=== PATIENT | female | born 1955 | race Caucasian/White ===

== ENCOUNTER 2017-01-27 15:00 | Observation (INO) | payer BC ==
--- NOTE | 2017-01-27 15:52 | PDOC ---
History of Present Illness - General Chief Complaint: Weakness Stated Complaint: WEAKNESS Past History - Past Medical History Allergies/Adverse Reactions: Allergies Allergy/AdvReac Type Severity Reaction Status Date / Time gatifloxacin [From Tequin] Allergy Severe Hives Verified 10/10/15 10:47 azithromycin Allergy Verified 10/10/15 10:47 codeine [Codeine] Allergy Verified 10/10/15 10:47 Home Medications: Ambulatory Orders Metformin HCl [Glucophage] 500 mg PO BID 06/21/15 Aspirin [ASA -] 81 mg PO DAILY 10/10/15 Oxycodone HCl/Acetaminophen [Percocet 5-325 mg Tablet -] 1 tab PO Q8H PRN #10 tablet MDD 3 10/10/15 Topiramate [Topamax] 50 mg PO DAILY 10/10/15 Anemia: No Asthma: No Cancer: No Cardiac Disorders: Yes (CAD, QUAD BYPASS, CARDIAC STENTS) CVA: No COPD: No CHF: No Dementia: No Diabetes: Yes GI Disorders: Yes (SBO) Disorders: No HTN: Yes Hypercholesterolemia: Yes Liver Disease: No Seizures: No Thyroid Disease: No - Surgical History Abdominal Surgery: (GASTRIC BYPASS) Cardiac Surgery: Yes (QUAD BYPASS) Cholecystectomy: Yes GI Surgery: Yes (GASTRIC BYPASS) - Immunization History Td Vaccination: Yes Immunization Up to Date: Yes - Suicide/Smoking/Psychosocial Hx Smoking Status: No Smoking History: Never smoked Have you smoked in the past 12 months: No Number of Cigarettes Smoked Daily: 0 Information on smoking cessation initiated: No Hx Alcohol Use: No Drug/Substance Use Hx: No Substance Use Type: None Hx Substance Use Treatment: No *Physical Exam - Vital Signs Last Vital Signs Temp Pulse Resp BP Pulse Ox 98.7 F 70 20 165/70 97 01/27/17 15:24 01/27/17 15:24 01/27/17 15:24 01/27/17 15:24 01/27/17 15:24 *DC/Admit/Observation/Transfer - Referrals Referrals: Presley Stevens MD [Primary Care Provider] - - Patient Instructions - Post Discharge Activity
--- NOTE | 2017-01-27 17:16 | PDOC ---
History of Present Illness <Jordyn Singh - Last Filed: 01/27/17 18:28> - History of Present Illness Initial Comments: 01/27/17 20:12 The patient is a 61 year old female, with a significant past medical history of hypertension, hyperlipidemia, diabetes(not fully compliant with Meds), CAD(s/p 10 stents), CABG, and SBO, who presents to the emergency department with weakness and dizziness since earlier this afternoon. 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 Patient reports sitting and putting her head down, and is unsure whether she lost consciousness or fell asleep. When she woke up, patient reports her dizziness persisted. Patient denies any head trauma, double/blurred vision, headache, lightheadedness, nausea, vomiting, or tinnitus. Patient reports similar symptoms prior to stent placement in the past. Patient states she typically does not develop any chest pain during these episodes, except during her first cardiac stent placement. Today, patient denies any chest pain, shortness of breath, diaphoresis, or palpitations. Patient reports added stress after losing her son to a motorcycle accident several weeks later, and states the principal at her school has not been understanding about her loss. Patient denies any suicidal or homicidal ideations. She denies any fever, chills, or cough. Patient reports one episode of urinary incontinence yesterday, but denies any dysuria, hematuria, or frequency. She denies any abdominal pain, diarrhea, constipation. She denies any recent travel or sick contacts. Allergies: Gatifloxacin, Codeine, Azithromycin Past Surgical History: CABG, Cardiac [id number], tonsillectomy cholecystectomy Social History: Social ETOH use. Non smoker. No recreational drug use. PCP: Dr. Stevens <Floyd Hughes - Last Filed: 01/27/17 20:21> - General Chief Complaint: Weakness Stated Complaint: WEAKNESS Time Seen by Provider: 01/27/17 16:13 Past History <Jordyn Singh - Last Filed: 01/27/17 18:28> - Past Medical History Anemia: No Asthma: No Cancer: No Cardiac Disorders: Yes (CAD, QUAD BYPASS, CARDIAC STENTS) CVA: No COPD: No CHF: No Dementia: No Diabetes: Yes GI Disorders: Yes (SBO) Disorders: No HTN: Yes Hypercholesterolemia: Yes Liver Disease: No Seizures: No Thyroid Disease: No - Surgical History Abdominal Surgery: (GASTRIC BYPASS) Cardiac Surgery: Yes (QUAD BYPASS) Cholecystectomy: Yes GI Surgery: Yes (GASTRIC BYPASS) - Immunization History Td Vaccination: Yes Immunization Up to Date: Yes - Suicide/Smoking/Psychosocial Hx Smoking Status: No Smoking History: Never smoked Have you smoked in the past 12 months: No Number of Cigarettes Smoked Daily: 0 Information on smoking cessation initiated: No Hx Alcohol Use: No Drug/Substance Use Hx: No Substance Use Type: None Hx Substance Use Treatment: No <Nassef,Yomna - Last Filed: 01/27/17 20:21> - Past Medical History Allergies/Adverse Reactions: Allergies Allergy/AdvReac Type Severity Reaction Status Date / Time gatifloxacin [From Tequin] Allergy Severe Hives Verified 10/10/15 10:47 azithromycin Allergy Verified 10/10/15 10:47 codeine [Codeine] Allergy Verified 10/10/15 10:47 Home Medications: Ambulatory Orders Metformin HCl [Glucophage] 500 mg PO BID 06/21/15 Prasugrel HCl [Effient] 0 mg PO DAILY 01/27/17 Review of Systems - Review of Systems Comments:: 01/27/17 20:14 GENERAL/CONSTITUTIONAL: Yes weakness, tremors. No fever or chills.. HEAD, EYES, EARS, NOSE AND THROAT: Yes black spots in vision, photophobia. No double vision or blurred vision. No ear pain or discharge. No sore throat. GASTROINTESTINAL: No nausea, vomiting, diarrhea or constipation. GENITOURINARY: Yes urinary incontinence. No hematuria, dysuria, frequency. CARDIOVASCULAR: No chest pain or shortness of breath. RESPIRATORY: No cough, wheezing, or hemoptysis. MUSCULOSKELETAL: No joint or muscle swelling or pain. No neck or back pain. SKIN: No rash NEUROLOGIC: Yes vertigo, dizziness, weakness. No headache, loss of consciousness. ENDOCRINE: No increased thirst. No abnormal weight change. HEMATOLOGIC/LYMPHATIC: No anemia, easy bleeding, or history of blood clots. ALLERGIC/IMMUNOLOGIC: No hives or skin allergy. <Nassef,Yomna - Last Filed: 01/27/17 20:21> *Physical Exam - Vital Signs Last Vital Signs Temp Pulse Resp BP Pulse Ox 98.7 F 70 20 165/70 97 01/27/17 15:24 01/27/17 15:24 01/27/17 15:24 01/27/17 15:24 01/27/17 15:24 <Jordyn Singh - Last Filed: 01/27/17 18:28> - Vital Signs Last Vital Signs Temp Pulse Resp BP Pulse Ox 98.7 F 70 20 165/70 97 01/27/17 15:24 01/27/17 15:24 01/27/17 15:24 01/27/17 15:24 01/27/17 15:24 - Physical Exam Comments: 01/27/17 20:15 GENERAL: Awake, alert, and fully oriented, in no acute distress HEAD: No signs of trauma EYES: PERRLA, EOMI, sclera anicteric, conjunctiva clear ENT: Auricles normal inspection, hearing grossly normal, nares patent, oropharynx clear without exudates. Moist mucosa NECK: Normal ROM, supple, no lymphadenopathy, JVD, or masses LUNGS: Breath sounds equal, clear to auscultation bilaterally. No wheezes, and no crackles HEART: Regular rate and rhythm, normal S1 and S2, no murmurs, rubs or gallops ABDOMEN: Soft, nontender, normoactive bowel sounds. No guarding, no rebound. No masses EXTREMITIES: Normal range of motion, no edema. No clubbing or cyanosis. No cords, erythema, or tenderness BACK: No midline spinal tenderness in cervical/thoracic/lumbar region NEUROLOGICAL: Normal speech, cranial nerves intact, negative pronator drift, 5/ 5 strength in all 4 extremities, normal sensation to light touch in all 4 extremities, normal cerebellar exam, normal gait, normal reflexes and tone SKIN: Warm, Dry, normal turgor, no rashes or lesions noted. <Ruperto Hughesmarco antonio - Last Filed: 01/27/17 20:21> Heart Score/ECG Review - History History: Slightly suspicious - Electrocardiogram EKG: Non specific repolarization disturbance - Age Age: 45-65 - Risk Factors Based on the list above the patient has:: >/=3 risk factors or Hx atherosclerotic disease - Troponin Troponin: </= normal limit - Score Heart Score - Total: 4 #1 01/27/17 20:18 Twelve-lead EKG was performed and reviewed by me. Normal sinus rhythm, rate 66, normal axis and intervals. No ST elevations. T wave flattening in leads 3 and V3. When compared to previous EKG T wave flattening in V3 is new and patient has pseudonormalization of T waves in lead 3. <Floyd Hughes - Last Filed: 01/27/17 20:21> ED Treatment Course - LABORATORY CBC & Chemistry Diagram: 01/27/17 17:00 12 17:00 - ADDITIONAL ORDERS Additional order review: 01/27/17 17:00 RBC 4.14 MCV 87.6 MCHC 33.4 RDW 14.3 MPV 8.6 Neutrophils % 57.8 Lymphocytes % 32.6 Monocytes % 7.3 Eosinophils % 1.7 Basophils % 0.6 - RADIOLOGY Radiograph Interpretation: 01/27/17 18:28 EXAM: Head CT INTERPRETED BY: Dr. Elizalde REVIEWED BY: Dr. Hughes IMPRESSION: No CT evidence of intracranial injury. A 1.3 cm at least partially calcified left frontal extra-axial lesion is noted suggestive of a meningioma. There is apparent mild perilesional edema. Contrast-enhanced MRI evaluation is suggested , nonemergent unless otherwise clinically indicated. Prominent atherosclerotic vascular calcifications are seen. Correlate with clinical risk factors. <Jordyn Singh - Last Filed: 01/27/17 18:28> - LABORATORY CBC & Chemistry Diagram: 01/27/17 17:00 12 17:00 - RADIOLOGY Radiology Studies Ordered: Category Date Time Status HEAD CT WITHOUT CONTRAST [CT] Stat CT Scan 01/27/17 16:56 Ordered CHEST X-RAY PORTABLE* [RAD] Stat Radiology 01/27/17 16:56 Ordered <Floyd Hughes - Last Filed: 01/27/17 20:21> Medical Decision Making - Medical Decision Making 01/27/17 18:16 61-year-old female with a history of CABG and CAD status post "10 stents." Vitals are unremarkable. Exam is unremarkable. Patient is high risk for ACS given history, patient also states she had similar symptoms prior to her previous stent placements. Will check cardiac enzymes and a chest x-ray and admit at minimum for observation. 01/27/17 20:19 Labs unremarkable including negative troponin. Chest x-ray on my read is negative for acute pathology. Patient given aspirin and admitted to Dr. Lizarraga for further management. Case discussed in detail with admitting physician including history, physical exam and ancillary studies. Admitting physician has assumed care for the patient, will follow all pending diagnostics and will complete the evaluation and treatment. <Floyd Hughes - Last Filed: 01/27/17 20:21> *DC/Admit/Observation/Transfer - Attestations Scribe Attestion: 01/27/17 18:28 Documentation prepared by Jordyn Singh, acting as medical communication specialist for Floyd Hughes MD. <Jordyn Singh - Last Filed: 01/27/17 18:28> - Discharge Dispostion Admit: Yes - Attestations Physician Attestion: 01/27/17 19:40 I, Dr. Floyd Hughes MD, attest that this document has been prepared under my direction and personally reviewed by me in its entirety. I further attest, that it accurately reflects all work, treatment, procedures and medical decision -making performed by me. <Floyd Hughes - Last Filed: 01/27/17 20:21> Diagnosis at time of Disposition: Weakness - Discharge Dispostion Condition at time of disposition: Stable - Referrals Referrals: Presley Stevens MD [Primary Care Provider] - - Patient Instructions - Post Discharge Activity
[2017-01-27 18:19] LABS: BASOPHIL 0.6 % (0-2.0); EOSINOPHIL 1.7 % (0-4.5); MCH 29.2 pg (25.7-33.7); MCHC 33.4 g/dl (32.0-36.0); MEAN CELL VOLUME 87.6 fl (80-96); MEAN PLT VOLUME 8.6 fl (7.5-11.1); NEUTROPHILS 57.8 % (42.8-82.8); PLATELET COUNT 259 K/MM3 (134-434); RDW 14.3 % (11.6-15.6); WHITE BLOOD COUNT 5.5 K/mm3 (4.0-10.0)
[2017-01-27 18:36] LABS: URINE APPEARANCE CLEAR; URINE BILIRUBIN NEGATIVE (NEGATIVE); URINE BLOOD NEGATIVE (NEGATIVE); URINE COLOR STRAW; URINE GLUCOSE (UA) NEGATIVE (NEGATIVE); URINE KETONE NEGATIVE (NEGATIVE); URINE LEUK ESTERASE TRACE (NEGATIVE); URINE NITRITE NEGATIVE (NEGATIVE); URINE PROTEIN NEGATIVE (NEGATIVE); URINE UROBILINOGEN NEGATIVE mg/dL (0.2-1.0)
[2017-01-27 18:41] LABS: ALBUMIN 3.8 g/dl (3.4-5.0); ANION GAP 6 (8-16); BILIRUBIN,TOTAL 0.4 mg/dL (0.2-1.0); CALCIUM 8.9 mg/dL (8.5-10.1); CO2 29 mmol/L (21-32); CREATININE 0.7 mg/dL (0.55-1.02); GLUCOSE,RANDOM 104 mg/dL (74-106); MAGNESIUM 2.3 mg/dL (1.8-2.4); SGOT/AST 12 U/L (15-37); SGPT/ALT 19 U/L (12-78); TOT PROT 7.1 g/dl (6.4-8.2)
[2017-01-27 18:49] LABS: ALK PHOS 95 U/L (45-117); THYROID STIMULATING HORMONE 1.27 uIU/ml (0.358-3.74); TROPONIN I 0.04 ng/ml (0.00-0.05)
[2017-01-27 18:59] LABS: URINE MUCUS RARE; URINE RBC <1 /hpf (0-3); URINE WBC 4 /hpf (3-5)
[2017-01-27] MEDS ORDERED: ASPIRIN 325 MG TABLET PO ONE (19:40)
--- NOTE | 2017-01-27 19:43 | HP ---
CHIEF COMPLAINT: Weakness, Dizziness and Chest Pressure PCP: Dr. Presley Stveens Corporate Specialist: Dr. Eric Merritt HISTORY OF PRESENT ILLNESS: This is a 61 y/o woman with a past medical history of CAD stents x10. Who presents to the ED with dizziness, generalized weakness, fatigue and L- chest pressure x today. Patient reports having dizziness and fatigue for weeks, worse today. 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 Patient reports placing her head on a desk, ?LOC. Patient reports having left chest wall pressure non-radiating earlier today- now resolved. Patient reports to having feelings of anxiety secondary to the stress- work related and the recent of her son, last November due to a motorcycle accident. Patient denies fever, chills, cough, AP, N/V/D, constipation, dysuria ER course was notable for: (1) CT Head- 1.3cm partially calcified left frontal extra lesion suggestive meningioma, mild perilesional edema (2) Troponin I- 0.04 (3) Chest Xray- no acute pathology Recent Travel: None PAST MEDICAL HISTORY: CAD (stents x10) HTN HLD DM SBO (06/2015) RLS PAST SURGICAL HISTORY: Quad Bypass ([facility], 2011) Gastric Bypass (2008) Cholecystectomy Tonsillectomy Tubal Ligation Social History: Smoking: Never Alcohol: None Drugs: None Lives with spouse, daughter in law, employed [employer] Family History: Mother- Heart Disease, living Father- unknown Allergies gatifloxacin [From Tequin] Allergy (Severe, Verified 10/10/15 10:47) Hives azithromycin Allergy (Verified 10/10/15 10:47) codeine [Codeine] Allergy (Verified 10/10/15 10:47) HOME MEDICATIONS: Home Medications Medication Instructions Recorded Metformin HCl [Glucophage] 500 mg PO BID 06/21/15 Prasugrel HCl [Effient] 0 mg PO DAILY 01/27/17 REVIEW OF SYSTEMS CONSTITUTIONAL: generalized weakness, malaise Absent: fever, chills, diaphoresis, loss of appetite, weight change HEENT: Absent: rhinorrhea, nasal congestion, throat pain, throat swelling, difficulty swallowing, mouth swelling, ear pain, eye pain, visual changes CARDIOVASCULAR: chest pain, presyncope, lightheadedness Absent: palpitations, irregular heart rate, peripheral edema RESPIRATORY: Absent: cough, shortness of breath, dyspnea with exertion, orthopnea, wheezing, stridor, hemoptysis GASTROINTESTINAL: Absent: abdominal pain, abdominal distension, nausea, vomiting, diarrhea, constipation, melena, hematochezia GENITOURINARY: Absent: dysuria, frequency, urgency, hesitancy, hematuria, flank pain, genital pain MUSCULOSKELETAL: Absent: myalgia, arthralgia, joint swelling, back pain, neck pain SKIN: Absent: rash, itching, pallor HEMATOLOGIC/IMMUNOLOGIC: Absent: easy bleeding, easy bruising, lymphadenopathy, frequent infections ENDOCRINE: Absent: unexplained weight gain, unexplained weight loss, heat intolerance, cold intolerance NEUROLOGIC: Absent: headache, focal weakness or paresthesias, dizziness, unsteady gait, seizure, mental status changes, bladder or bowel incontinence PSYCHIATRIC: Absent: anxiety, depression, suicidal or homicidal ideation, hallucinations. PHYSICAL EXAMINATION Vital Signs - 24 hr 01/27/17 15:24 Temperature 98.7 F Pulse Rate 70 Respiratory 20 Rate Blood Pressure 165/70 O2 Sat by Pulse 97 Oximetry (%) GENERAL: Tearful, awake, alert, and fully oriented, in no acute distress. HEAD: Normal with no signs of trauma. EYES: Pupils equal, round and reactive to light, extraocular movements intact, sclera anicteric, conjunctiva clear. No lid lag. EARS, NOSE, THROAT: Ears normal, nares patent, oropharynx clear without exudates. Moist mucous membranes. NECK: Normal range of motion, supple without lymphadenopathy, JVD, or masses. LUNGS: Breath sounds equal, clear to auscultation bilaterally. No wheezes, and no crackles. No accessory muscle use. HEART: Regular rate and rhythm, normal S1 and S2 without murmur, rub or gallop. ABDOMEN: Soft, nontender, not distended, normoactive bowel sounds, no guarding, no rebound, no masses. No hepatomegaly or splenomegaly. MUSCULOSKELETAL: Normal range of motion at all joints. No bony deformities or tenderness. No CVA tenderness. UPPER EXTREMITIES: 2+ pulses, warm, well-perfused. No cyanosis. No clubbing. No peripheral edema. LOWER EXTREMITIES: 2+ pulses, warm, well-perfused. No calf tenderness. No peripheral edema. NEUROLOGICAL: Cranial nerves II-XII intact. Normal speech. Heel-Pimentel test-wnl no ataxia. Gait not observed PSYCHIATRIC: Cooperative. Good eye contact. Appropriate mood and affect. SKIN: Warm, dry, normal turgor, no rashes or lesions noted, normal capillary refill. Laboratory Results - last 24 hr 01/27/17 01/27/17 01/27/17 17:00 17:00 17:00 WBC 5.5 RBC 4.14 Hgb 12.1 Hct 36.3 MCV 87.6 MCH 29.2 MCHC 33.4 RDW 14.3 Plt Count 259 MPV 8.6 Neutrophils % 57.8 Lymphocytes % 32.6 Monocytes % 7.3 Eosinophils % 1.7 Basophils % 0.6 Sodium 140 Potassium 3.7 Chloride 105 Carbon Dioxide 29 Anion Gap 6 L BUN 11 Creatinine 0.7 Creat Clearance w eGFR > 60 Random Glucose 104 Calcium 8.9 Magnesium 2.3 D Total Bilirubin 0.4 AST 12 L ALT 19 Alkaline Phosphatase 95 Troponin I 0.04 B-Natriuretic Peptide 159.49 H Total Protein 7.1 Albumin 3.8 TSH 1.27 D Urine Color Urine Appearance Urine pH Ur Specific [place] Urine Protein Urine Glucose (UA) Urine Ketones Urine Blood Urine Nitrite Urine Bilirubin Urine Urobilinogen Urine WBC (Auto) Urine RBC (Auto) Ur Epithelial Cells Urine Mucus Acetone, Qual 01/27/17 01/27/17 17:00 17:55 WBC RBC Hgb Hct MCV MCH MCHC RDW Plt Count MPV Neutrophils % Lymphocytes % Monocytes % Eosinophils % Basophils % Sodium Potassium Chloride Carbon Dioxide Anion Gap BUN Creatinine Creat Clearance w eGFR Random Glucose Calcium Magnesium Total Bilirubin AST ALT Alkaline Phosphatase Troponin I B-Natriuretic Peptide Total Protein Albumin TSH Urine Color Straw Urine Appearance Clear Urine pH 6.0 Ur Specific [place] 1.005 Urine Protein Negative Urine Glucose (UA) Negative Urine Ketones Negative Urine Blood Negative Urine Nitrite Negative Urine Bilirubin Negative Urine Urobilinogen Negative Urine WBC (Auto) 4 Urine RBC (Auto) <1 Ur Epithelial Cells Rare Urine Mucus Rare Acetone, Qual Negative L RADIOLOGY Radiograph Interpretation: 01/27/17 18:28 EXAM: Head CT INTERPRETED BY: Dr. Elizalde REVIEWED BY: Dr. Hughes IMPRESSION: No CT evidence of intracranial injury. A 1.3 cm at least partially calcified left frontal extra-axial lesion is noted suggestive of a meningioma. There is apparent mild perilesional edema. Contrast-enhanced MRI evaluation is suggested , nonemergent unless otherwise clinically indicated. Prominent atherosclerotic vascular calcifications are seen. Correlate with clinical risk factors. ASSESSMENT/PLAN: This is a 61 y/o woman with a PMHx of: CAD (stents x10), HTN, HLD, DM, SBO, RLS. Placed in Tele Observation for L-sided Weakness, Chest Pressure r/o ACS. Plan: 1. Neuro: L-Sided Weakness - Likely due to fatigue vs stress vs anxiety vs TIA - NIHSS 0 - CT Head- see above - On exam no focal deficit appreciated - Consider PT - f/u with neuro outpatient - Fall Precautions - Monitor vitals - Repeat CBC, BMP in am 2. Cardiology: Chest Pressure - HEART SCORE 4 - Continue cardiac monitoring - Serial Enzymes neg x1 - ASA given in ED, will continue - Appreciate Cardiology Consult - Echo 09/03/14: LVEF 70%, paradoxical septal motion due to prior CABG, trivial MR/TR/LA, PASP 31 mmHg - Treadmill nuclear stress test 06/26/13: Small area of lateral ischemia at 85% max predicted HR, normal wall motion with LVEF 80% - Echo 3. CAD - Stents x10 - Continue Effient, Asa 4. HTN - Controlled - Monitor BP - Consider BB - Monitor renal function 5. HLD - Will start Lipitor 6. Diabetes Mellitus - BGMs - ISS - HgbA1C in am - Will hold home med concern for hypoglycemic event 7. FEN - Replete lytes - Low Na, Diabetic Diet 8. DVT Prophylaxis - SCDs - Consider ACs if LOS > 48 hrs Code Status: Full Code Dispo: Tele Observation Problem List - Problem (1) Weakness Code(s): R53.1 - WEAKNESS (2) Left chest pressure Code(s): R07.89 - OTHER CHEST PAIN (3) HTN (hypertension) Code(s): I10 - ESSENTIAL (PRIMARY) HYPERTENSION (4) Anxiety Code(s): F41.9 - ANXIETY DISORDER, UNSPECIFIED (5) CAD (coronary artery disease) of artery bypass graft Code(s): I25.810 - ATHEROSCLEROSIS OF CABG W/O ANGINA PECTORIS (6) HLD (hyperlipidemia) Code(s): E78.5 - HYPERLIPIDEMIA, UNSPECIFIED (7) Diabetes mellitus Code(s): E11.9 - TYPE 2 DIABETES MELLITUS WITHOUT COMPLICATIONS Visit type - Emergency Visit Emergency Visit: Yes ED Registration Date: 01/27/17 Care time: The patient presented to the Emergency Department on the above date and was hospitalized for further evaluation of their emergent condition. - New Patient This patient is new to me today: Yes Date on this admission: 01/27/17 - Critical Care Critical Care patient: No
[2017-01-27] MEDS ORDERED: ASPIRIN 325 MG TABLET ONE (20:57)
[2017-01-27 22:52] LABS: URINE LEUK ESTERASE 1+ (NEGATIVE)
[2017-01-28 02:39] VITALS: BMI 29.9
[2017-01-28] MEDS: INSULIN SLIDING SCALE (NOVOLOG) 1 VIAL SQ SCH ×2 (06:57→12:22)
[2017-01-28] MEDS ORDERED: metFORMIN HCL 500 MG TABLET (FP) PO SCH (07:00)
[2017-01-28 07:36] LABS: BASOPHIL 0.8 % (0-2.0); EOSINOPHIL 4.4 % (0-4.5); MCH 28.8 pg (25.7-33.7); MCHC 33.4 g/dl (32.0-36.0); MEAN CELL VOLUME 86.3 fl (80-96); MEAN PLT VOLUME 8.2 fl (7.5-11.1); PLATELET COUNT 230 K/MM3 (134-434); RDW 14.5 % (11.6-15.6); WHITE BLOOD COUNT 3.9 K/mm3 (4.0-10.0)
[2017-01-28 08:15] LABS: ANION GAP 8 (8-16); CALCIUM 8.9 mg/dL (8.5-10.1); CO2 28 mmol/L (21-32); CREATININE 0.6 mg/dL (0.55-1.02); GLUCOSE,RANDOM 109 mg/dL (74-106); MAGNESIUM 2.2 mg/dL (1.8-2.4); PHOSPHOROUS 4.4 mg/dL (2.5-4.9)
[2017-01-28] MEDS ORDERED: ASPIRIN 81 MG CHEWABLE TABLETS PO SCH (10:00)
[2017-01-28] MEDS ORDERED: PRASUGREL HCL 10 MG TAB PO SCH (10:00)
[2017-01-28] MEDS ORDERED: TOPIRAMATE 25 MG TABLET (FP) PO SCH (10:00)
[2017-01-28] MEDS ORDERED: PATIENT'S OWN MEDICATION (NON-FORMULARY) (Topiramate [Topamax] 50 MG) PO SCH (10:00)
--- NOTE | 2017-01-28 10:09 | CON.CARD ---
Consult Consult Specialty:: Cardiology Referred by:: Ramandeep Narvaez NP Reason for Consultation:: Chest pain - History of Present Illness Chief Complaint: Chest discomfort, syncope? History of Present Illness: 61 yo female with CAD, CABG x4 (01/23/12, JEREZ to LAD, SVG to rPDA, SVG to OM1, SVG to ramus), HTN, hyperlipidemia, and DM type 2. 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 She was feeling tired and laid her head down on her desk and subsequently awoke at her desk. She is unclear as to if she fell asleep or had syncope. Currently without symptoms. CXR negative for acute pathology. No ischemic ECG changes. Trops (-) x3. Head CT demonstrated 1.3 cm partially calcified left frontal extra lesion suggestive meningioma and mild perilesional edema. Patient's current refining supervisor is Dr. Larson and last saw him ~ 6 months ago. - History Source History Provided By: Patient Limitations to Obtaining History: No Limitations - Past Medical History Cardio/Vascular: Yes: CAD, HTN, Hyperlipdemia Gastrointestinal: Yes: Diverticulitis, Other (SBO) ...: No Endocrine: Yes: Diabetes Mellitus Additional Medical History: Restless leg syndrome - Past Surgical History Past Surgical History: Yes: Bariatric Surgery (gastric bypass 2008), CABG ( (JEREZ to LAD, SVG to rPDA, SVG to OM1, SVG to ramus)), Cholecystectomy, Stent , Tonsillectomy, Tubal Ligation - Alcohol/Substance Use Hx Alcohol Use: No - Smoking History Smoking history: Never smoked Have you smoked in the past 12 months: No Aproximately how many cigarettes per day: 0 Home Medications - Allergies Allergies/Adverse Reactions: Allergies Allergy/AdvReac Type Severity Reaction Status Date / Time gatifloxacin [From Tequin] Allergy Severe Hives Verified 10/10/15 10:47 azithromycin Allergy Verified 10/10/15 10:47 codeine [Codeine] Allergy Verified 10/10/15 10:47 - Home Medications Home Medications: Ambulatory Orders Metformin HCl [Glucophage] 500 mg PO BID 06/21/15 Prasugrel HCl [Effient] 10 mg PO DAILY 01/27/17 Aspirin [ASA -] 81 mg PO DAILY 01/28/17 Topiramate [Topamax] 50 mg PO DAILY 01/28/17 Family Disease History - Family Disease History Family Disease History: Heart Disease: Mother Vital Signs: Vital Signs Temperature 97.7 F 01/28/17 06:00 Pulse Rate 64 01/28/17 06:00 Respiratory Rate 16 01/28/17 06:00 Blood Pressure 133/75 01/28/17 06:00 O2 Sat by Pulse Oximetry (%) 99 01/28/17 03:44 Constitutional: Yes: Well Nourished, No Distress Eyes: Yes: Conjunctiva Clear, EOM Intact HENT: Yes: Atraumatic, Normocephalic Respiratory: Yes: CTA Bilaterally Gastrointestinal: Yes: Normal Bowel Sounds, Soft Cardiovascular: Yes: Regular Rate and Rhythm JVD: No Carotid Bruit: No PMI: Non-Displaced Heart Sounds: Yes: S1, S2 Murmur: No: Systolic Murmur Edema: No Peripheral Pulses WNL: Yes Neurological: Yes: Alert, Oriented, Cran Nerves II-XII Intact Psychiatric: Yes: WNL - Other Data Labs, Other Data: CBC, BMP 01/28/17 06:00 01/28/17 06:00 Troponin, BNP 01/27/17 01/27/17 01/28/17 17:00 17:00 00:10 Troponin I 0.04 0.04 B-Natriuretic Peptide 159.49 H 01/28/17 06:00 Troponin I 0.04 B-Natriuretic Peptide Troponin, BNP 01/27/17 01/27/17 01/28/17 17:00 17:00 00:10 Troponin I 0.04 0.04 B-Natriuretic Peptide 159.49 H 01/28/17 06:00 Troponin I 0.04 B-Natriuretic Peptide 01/27/17 ECG: Sinus rhythm, rate 66 bpm, delayed R wave progression Echo: Report Reviewed (09/03/14 Echocardiogram: LVEF 70%, paradoxical septal motion due to prior CABG, trivial MR/TR/WY, PASP 31 mmHg) Imaging - Results Chest X-ray: Report Reviewed (01/27/17: No acute pathology.), Image Reviewed Other: Report Reviewed (06/26/13 Treadmill nuclear stress test: Small area of lateral ischemia at 85% max predicted HR, normal wall motion with LVEF 80%) Assessment/Plan 61 yo female with CAD, CABG x4 (01/23/12, JEREZ to LAD, SVG to rPDA, SVG to OM1, SVG to ramus), HTN, hyperlipidemia, and DM type 2. Patient was admitted yesterday with episode of dizziness, fatigue, chest discomfort, and questionable syncope (versus falling asleep). No ischemic ECG changes. CXR negative for acute pathology Trops (-) x3. Head CT demonstrated 1.3 cm partially calcified left frontal extra lesion suggestive meningioma and mild perilesional edema. No arrhythmias were noted on telemetry overnight. RECS: Patient may be discharged from cardiac standpoint with outpatient follow-up with her outside refining supervisor (Dr. Larson) in 1-2 weeks. No further inpatient cardiac work-up or intervention is clinically indicated at this time. Discharge planning as per hospitalist service. Neurology follow-up as per neuro service. Will see prn. Please call with questions.
[2017-01-28 10:14] VITALS: TEMP 97.6
[2017-01-28 12:20] VITALS: BP 159/90; PULSE 60
--- NOTE | 2017-01-28 12:44 | DS ---
Physical Exam: SUBJECTIVE: Patient seen and examined OBJECTIVE: Vital Signs Period Temp Pulse Resp BP Sys/Sams Pulse Ox Last 24 Hr 97.3 F-98.7 F 60-71 16-20 110-165/54-90 97-99 PHYSICAL EXAM GENERAL: The patient is awake, alert, and fully oriented, in no acute distress. HEAD: Normal with no signs of trauma. EYES: PERRL, extraocular movements intact, sclera anicteric, conjunctiva clear. ENT: Ears normal, nares patent, oropharynx clear without exudates, moist mucous membranes. NECK: Trachea midline, full range of motion, supple. LUNGS: Breath sounds equal, clear to auscultation bilaterally, no wheezes, no crackles, no accessory muscle use. HEART: Regular rate and rhythm, S1, S2 without murmur, rub or gallop. ABDOMEN: Soft, nontender, nondistended, normoactive bowel sounds, no guarding, no rebound, no hepatosplenomegaly, no masses. EXTREMITIES: 2+ pulses, warm, well-perfused, no edema. NEUROLOGICAL: Cranial nerves II through XII grossly intact. Normal speech, gait not observed. PSYCH: Normal mood, normal affect. SKIN: Warm, dry, normal turgor, no rashes or lesions noted. LABS Laboratory Results - last 24 hr 01/27/17 01/27/17 01/27/17 17:00 17:00 17:00 WBC 5.5 RBC 4.14 Hgb 12.1 Hct 36.3 MCV 87.6 MCH 29.2 MCHC 33.4 RDW 14.3 Plt Count 259 MPV 8.6 Neutrophils % 57.8 Lymphocytes % 32.6 Monocytes % 7.3 Eosinophils % 1.7 Basophils % 0.6 Sodium 140 Potassium 3.7 Chloride 105 Carbon Dioxide 29 Anion Gap 6 L BUN 11 Creatinine 0.7 Creat Clearance w eGFR > 60 POC Glucometer Random Glucose 104 Hemoglobin A1c % Calcium 8.9 Phosphorus Magnesium 2.3 D Total Bilirubin 0.4 AST 12 L ALT 19 Alkaline Phosphatase 95 Troponin I 0.04 B-Natriuretic Peptide 159.49 H Total Protein 7.1 Albumin 3.8 TSH 1.27 D Urine Color Urine Appearance Urine pH Ur Specific [place] Urine Protein Urine Glucose (UA) Urine Ketones Urine Blood Urine Nitrite Urine Bilirubin Urine Urobilinogen Ur Leukocyte Esterase Urine WBC (Auto) Urine RBC (Auto) Ur Epithelial Cells Urine Mucus Acetone, Qual 01/27/17 01/27/17 01/28/17 17:00 17:55 00:10 WBC RBC Hgb Hct MCV MCH MCHC RDW Plt Count MPV Neutrophils % Lymphocytes % Monocytes % Eosinophils % Basophils % Sodium Potassium Chloride Carbon Dioxide Anion Gap BUN Creatinine Creat Clearance w eGFR POC Glucometer Random Glucose Hemoglobin A1c % Calcium Phosphorus Magnesium Total Bilirubin AST ALT Alkaline Phosphatase Troponin I 0.04 B-Natriuretic Peptide Total Protein Albumin TSH Urine Color Straw Urine Appearance Clear Urine pH 6.0 Ur Specific [place] 1.005 Urine Protein Negative Urine Glucose (UA) Negative Urine Ketones Negative Urine Blood Negative Urine Nitrite Negative Urine Bilirubin Negative Urine Urobilinogen Negative Ur Leukocyte Esterase 1+ H Urine WBC (Auto) 4 Urine RBC (Auto) <1 Ur Epithelial Cells Rare Urine Mucus Rare Acetone, Qual Negative L 01/28/17 01/28/17 01/28/17 06:00 06:00 06:00 WBC 3.9 L RBC 3.96 Hgb 11.4 Hct 34.2 MCV 86.3 MCH 28.8 MCHC 33.4 RDW 14.5 Plt Count 230 MPV 8.2 Neutrophils % 47.0 Lymphocytes % 37.2 Monocytes % 10.6 H Eosinophils % 4.4 D Basophils % 0.8 Sodium 143 Potassium 3.9 Chloride 107 Carbon Dioxide 28 Anion Gap 8 BUN 12 Creatinine 0.6 Creat Clearance w eGFR POC Glucometer Random Glucose 109 H Hemoglobin A1c % Calcium 8.9 Phosphorus 4.4 Magnesium 2.2 Total Bilirubin AST ALT Alkaline Phosphatase Troponin I 0.04 B-Natriuretic Peptide Total Protein Albumin TSH Urine Color Urine Appearance Urine pH Ur Specific [place] Urine Protein Urine Glucose (UA) Urine Ketones Urine Blood Urine Nitrite Urine Bilirubin Urine Urobilinogen Ur Leukocyte Esterase Urine WBC (Auto) Urine RBC (Auto) Ur Epithelial Cells Urine Mucus Acetone, Qual 01/28/17 01/28/17 06:00 06:42 WBC RBC Hgb Hct MCV MCH MCHC RDW Plt Count MPV Neutrophils % Lymphocytes % Monocytes % Eosinophils % Basophils % Sodium Potassium Chloride Carbon Dioxide Anion Gap BUN Creatinine Creat Clearance w eGFR POC Glucometer 103 Random Glucose Hemoglobin A1c % 7.1 H D Calcium Phosphorus Magnesium Total Bilirubin AST ALT Alkaline Phosphatase Troponin I B-Natriuretic Peptide Total Protein Albumin TSH Urine Color Urine Appearance Urine pH Ur Specific [place] Urine Protein Urine Glucose (UA) Urine Ketones Urine Blood Urine Nitrite Urine Bilirubin Urine Urobilinogen Ur Leukocyte Esterase Urine WBC (Auto) Urine RBC (Auto) Ur Epithelial Cells Urine Mucus Acetone, Qual HOSPITAL COURSE: Date of Admission:01/27/17 Date of Discharge: 01/28/17 Minutes to complete discharge: 35 Discharge Summary Reason For Visit: WEAKNESS Current Active Problems Anxiety (Acute) CAD (coronary artery disease) of artery bypass graft (Acute) HLD (hyperlipidemia) (Acute) HTN (hypertension) (Acute) Left chest pressure (Acute) Weakness (Acute) Condition: Improved - Instructions Diet, Activity, Other Instructions: A prescription has been sent to your pharmacy for meclizine. Take this medication as directed for dizziness. It is recommended you follow up with your primary care provider Dr. Stevens within 1-2 weeks of your discharge. You should advise him that during your hospital stay a CT of your head was done which showed a 1.3cm possible meningioma. It is recommended you discuss this finding with Dr. Setvens, and that he arrange for you to have repeat imaging. Also, as we discussed, you will need to get the records/cards from [facility] and [facility] showing the dates and types of cardiac stents you have. This will be important if you need MRI imaging in the future. Return to the emergency department for any new or worsening symptoms. I Referrals: Presley Stevens MD [Primary Care Provider] - 1 Week Disposition: HOME - Home Medications Comprehensive Discharge Medication List: Ambulatory Orders Metformin HCl [Glucophage] 500 mg PO BID 06/21/15 Prasugrel HCl [Effient] 10 mg PO DAILY 01/27/17 Aspirin [ASA -] 81 mg PO DAILY 01/28/17 Atorvastatin Ca [Lipitor] 40 mg PO HS tablet 01/28/17 Meclizine HCl 25 mg PO BID PRN #20 tablet 01/28/17 Topiramate [Topamax] 50 mg PO DAILY 01/28/17
--- NOTE | 2017-01-28 20:48 | EKG ---
Test Reason : Blood Pressure : / mmHG Vent. Rate : 066 BPM Atrial Rate : 066 BPM P-R Int : 140 ms QRS Dur : 086 ms QT Int : 422 ms P-R-T Axes : 046 019 042 degrees QTc Int : 442 ms SINUS RHYTHM WITH MARKED SINUS ARRHYTHMIA POSSIBLE LEFT ATRIAL ENLARGEMENT BORDERLINE ECG WHEN COMPARED WITH ECG OF 26-NOV-2004 12:09, CRITERIA FOR INFERIOR INFARCT IS NO LONGER PRESENT Confirmed by TREVOR AGEE, EMERSON ([id number]) on 01/28/2017 8:47:41 PM Referred By: Confirmed By:EMERSON MURRAY MD
[2017-01-28] MEDS ORDERED: ATORVASTATIN CA 40 MG TABLET (FP) PO SCH (22:00)
== END 2017-01-28 14:21 | disposition home or self-care (01) ==
LOC: JER 15:00 → JERBED 20:44 → J4S 01-28 01:20
PROVIDERS: ADMIT Internal Medicine; ATTEND Nurse Practitioner Acute Care
DX: I25.10 Atherosclerotic heart disease of native coronary artery without angina pectoris (principal); Z98.61 Coronary angioplasty status; Z95.1 Presence of aortocoronary bypass graft; E11.9 Type 2 diabetes mellitus without complications; Z79.84 Long term (current) use of oral hypoglycemic drugs; E78.5 Hyperlipidemia, unspecified; F41.9 Anxiety disorder, unspecified; Z98.84 Bariatric surgery status
CPT/HCPCS: 36415; 70450-TC; 71020-TC; 80048; 80053; 81003; 81015; 82009; 83036; 83735; 83880; 84100; 84443; 84484; 85025; 87086; 93005; 93010; 99283-25; 99284-25; G0378

== ENCOUNTER 2017-07-06 23:03 | Emergency (ER) | payer BC, OTHER ==
[2017-07-06 23:06] VITALS: BP 160/71; PULSE 66; TEMP 98.2; BMI 32.8
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
[2017-07-06] MEDS ORDERED: KETOROLAC TROMETHAMINE 60 MG/2 ML VIAL IM ONE (23:11)
== END 2017-07-06 23:24 | disposition home or self-care (01) ==
LOC: FER 23:03
PROC: 3E0233Z Introduction of Anti-inflammatory into Muscle, Percutaneous Approach (ICD-10-PCS; principal; 2017-07-06)
DX: S16.1XXA Strain of muscle, fascia and tendon at neck level, initial encounter (principal); S39.012A Strain of muscle, fascia and tendon of lower back, initial encounter; V43.52XA Car driver injured in collision with other type car in traffic accident, initial encounter; Y93.89 Activity, other specified; Y92.410 Unspecified street and highway as the place of occurrence of the external cause; I10 Essential (primary) hypertension; E11.9 Type 2 diabetes mellitus without complications; E78.00 Pure hypercholesterolemia, unspecified; Z98.84 Bariatric surgery status
CPT/HCPCS: 99281-25

== ENCOUNTER 2018-01-03 13:46 | Inpatient (IN) | payer SELFPAY ==
[2018-01-03] MEDS ORDERED: ONDANSETRON 4 MG/2 ML VIAL IVPUSH ONE (14:06)
[2018-01-03] MEDS ORDERED: SODIUM CHLORIDE 1,000 ML IV STA (14:06)
[2018-01-03] MEDS ORDERED: morphine CARPU-JECT 4 MG/1 ML DISP.SYRIN IVPUSH ONE (14:06)
--- NOTE | 2018-01-03 14:16 | PDOC ---
Attending Attestation - Resident Resident Name: Jerad Boland - ED Attending Attestation I have performed the following: I have examined & evaluated the patient, The case was reviewed & discussed with the resident, I agree w/resident's findings & plan, Exceptions are as noted - HPI HPI: 01/03/18 18:03 Abdominal pain for 2 days, mid abdomen, with nausea and diarrhea. History of multiple surgeries including cholecystectomy, gastric bypass, small bowel obstruction, diverticulitis. No fever or chills or other signs of sepsis. Tolerating small amounts of fluids by mouth - Physicial Exam PE: 01/03/18 18:04 Physical exam reveals that the patient is afebrile with slightly elevated blood pressure but otherwise normal vital signs No pallor or icterus Pulmonary and cardiac exams normal Abdomen slightly distended, but with bowel sounds present. There is diffuse tenderness to palpation, with the area of maximal tenderness varying between the epigastrium, and both lower quadrants. No andrea guarding or rebound. - Medical Decision Making 01/03/18 18:05 Assessment: CAT scan reveals probable partial SBO. No sign of perforation, abscess, free air. Plan: Admit for observation. Bowel rest. IV fluids. Pain control. Surgical consultation.
[2018-01-03 14:36] LABS: PH,URINE 5.5 (4.5-8); URINE APPEARANCE Clear; URINE BILIRUBIN Negative (NEGATIVE); URINE COLOR Yellow; URINE GLUCOSE (UA) Negative (NEGATIVE); URINE KETONE Negative (NEGATIVE); URINE LEUK ESTERASE Negative (NEGATIVE); URINE NITRITE Negative (NEGATIVE); URINE PROTEIN Negative (NEGATIVE); URINE UROBILINOGEN 0.2 (0.2-1.0)
[2018-01-03] MEDS ORDERED: ONDANSETRON *ODT* 4 MG TABLET ONE (14:38)
[2018-01-03 15:14] LABS: BASO % 0.6 % (0-2.0); EOS % 2.8 % (0-4.5); HEMATOCRIT 40.5 % (32.4-45.2); HEMOGLOBIN 13.1 GM/dl (10.7-15.3); LYMPH % 13.1 % (8-40); MCH 29.1 pg (25.7-33.7); MCHC 32.3 g/dl (32.0-36.0); MEAN CELL VOLUME 90.2 fl (80-96); MEAN PLT VOLUME 8.1 fl (7.5-11.1); MONO % 5.7 % (3.8-10.2); NEUT % 77.8 % (42.8-82.8); PLATELET COUNT 287 K/MM3 (134-434); RBC 4.49 M/mm3 (3.60-5.2); WHITE BLOOD COUNT 6.7 K/mm3 (4.0-10.8)
[2018-01-03] MEDS ORDERED: morphine SULFATE 4 MG/ML VIAL ONE (15:14)
[2018-01-03 15:23] LABS: INR 1.02 (0.82-1.09); PROTHROMBIN TIME (PATIENT) 11.4 SEC (10.2-13.0)
[2018-01-03 15:28] LABS: ALBUMIN 4.2 g/dl (3.5-5.0); ALK PHOS 94 U/L (32-92); ANION GAP 7 MMOL/L (8-16); BILIRUBIN,TOTAL 0.6 mg/dl (0.2-1.0); BLOOD UREA NITROGEN 11 mg/dl (7-18); CALCIUM 9.3 mg/dl (8.4-10.2); CHLORIDE 101 mmol/L (98-107); CO2 26 mmol/L (22-28); CREATININE 0.7 mg/dl (0.6-1.3); GLUCOSE,RANDOM 136 mg/dl (74-106); POTASSIUM 3.7 mmol/L (3.5-5.1); SGOT/AST 21 U/L (10-42); SGPT/ALT 19 U/L (10-40); SODIUM 134 mmol/L (136-145); TOT PROT 7.8 g/dl (6.4-8.3)
[2018-01-03] MEDS ORDERED: ONDANSETRON *ODT* 4 MG TABLET SL ONE (15:34)
--- NOTE | 2018-01-03 15:38 | PDOC ---
History of Present Illness - General Chief Complaint: Pain, Acute Stated Complaint: abd pain Time Seen by Provider: 01/03/18 13:49 History Source: Patient Exam Limitations: No Limitations - History of Present Illness Initial Comments: 01/03/18 15:32 Patient is a 62 year old female with history of gastric bypass, pancreatitis, SBO, CAD s/p stenting, DM, HTN, s/p cholecystectomy here today complaining of abdominal pain that started yesterday. Patient endorses associated nausea and diarrhea. Patient's granddaughter is here today with viral illness as well. Patient denies vomiting, fevers, chills. Last bowel movement today and was diarrheal. Able to tolerate PO. Patient reports not taking any medication for her medical problems. Denies dysuria. Past History - Past Medical History Allergies/Adverse Reactions: Allergies Allergy/AdvReac Type Severity Reaction Status Date / Time gatifloxacin [From Tequin] Allergy Severe Hives Verified 01/03/18 13:47 azithromycin Allergy Verified 01/03/18 13:47 codeine [Codeine] Allergy Verified 01/03/18 13:47 Home Medications: Ambulatory Orders Aspirin [ASA -] 81 mg PO DAILY 01/03/18 Anemia: No Asthma: No Cancer: No Cardiac Disorders: Yes (CAD, QUAD BYPASS, CARDIAC STENTS) CVA: No COPD: No CHF: No Dementia: No Diabetes: Yes GI Disorders: Yes (SBO) Disorders: No HTN: Yes Hypercholesterolemia: Yes Liver Disease: No Seizures: No Thyroid Disease: No - Surgical History Abdominal Surgery: (GASTRIC BYPASS) Cardiac Surgery: Yes (QUAD BYPASS) Cholecystectomy: Yes GI Surgery: Yes (GASTRIC BYPASS) - Immunization History Td Vaccination: Yes Immunization Up to Date: Yes - Suicide/Smoking/Psychosocial Hx Smoking Status: No Smoking History: Never smoked Have you smoked in the past 12 months: No Number of Cigarettes Smoked Daily: 0 Hx Alcohol Use: No Drug/Substance Use Hx: No Substance Use Type: None Hx Substance Use Treatment: No Review of Systems - Review of Systems Comments:: 01/03/18 15:34 GENERAL/CONSTITUTIONAL: No fever or chills. No weakness. HEAD, EYES, EARS, NOSE AND THROAT: No change in vision. No sore throat. CARDIOVASCULAR: No chest pain or shortness of breath RESPIRATORY: No cough, wheezing, or hemoptysis. GASTROINTESTINAL: +nausea, no vomiting, diarrhea or constipation. GENITOURINARY: No dysuria, frequency, or change in urination. MUSCULOSKELETAL: No joint or muscle swelling or pain. No neck or back pain. SKIN: No rash NEUROLOGIC: No headache, vertigo, loss of consciousness, or change in strength/ sensation. ENDOCRINE: No increased thirst. No abnormal weight change HEMATOLOGIC/LYMPHATIC: No anemia, easy bleeding, or history of blood clots. ALLERGIC/IMMUNOLOGIC: No hives or skin allergy. *Physical Exam - Vital Signs Last Vital Signs Temp Pulse Resp BP Pulse Ox 98.3 F 80 17 186/96 H 99 01/03/18 13:47 01/03/18 13:47 01/03/18 13:47 01/03/18 13:47 01/03/18 13:47 - Physical Exam Comments: 01/03/18 15:35 GENERAL: Awake, alert, and fully oriented, in no acute distress HEAD: No signs of trauma, normocephalic, atraumatic EYES: PERRLA, EOMI, sclera anicteric, conjunctiva clear ENT: Auricles normal inspection, hearing grossly normal, nares patent, oropharynx clear without exudates. Moist mucosa NECK: Normal ROM, supple, no lymphadenopathy, JVD, or masses LUNGS: No distress, speaks full sentences, clear to auscultation bilaterally HEART: Regular rate and rhythm, normal S1 and S2, no murmurs, rubs or gallops, peripheral pulses normal and equal bilaterally. ABDOMEN: Soft, tender in epigastrium, several surgical scars, no peritoneal signs EXTREMITIES: Normal inspection, Normal range of motion, no edema. No clubbing or cyanosis. NEUROLOGICAL: Cranial nerves II through XII grossly intact. Normal speech, normal gait, no focal sensorimotor deficits SKIN: Warm, Dry, normal turgor, no rashes or lesions noted. ED Treatment Course - LABORATORY CBC & Chemistry Diagram: 01/03/18 15:06 01/03/18 15:06 - ADDITIONAL ORDERS Additional order review: Laboratory Results 01/03/18 14:30 Urine Color Yellow Urine Appearance Clear Urine pH 5.5 Ur Specific [place] 1.010 Urine Protein Negative Urine Glucose (UA) Negative Urine Ketones Negative Urine Blood Negative Urine Nitrite Negative Urine Bilirubin Negative Urine Urobilinogen 0.2 Ur Leukocyte Esterase Negative 01/03/18 15:06 RBC 4.49 MCV 90.2 MCHC 32.3 RDW 14.0 MPV 8.1 Neutrophils % 77.8 Lymphocytes % 13.1 Monocytes % 5.7 Eosinophils % 2.8 Basophils % 0.6 - RADIOLOGY Radiology Studies Ordered: Category Date Time Status ABDOMEN & PELVIS CT WITH CONTR [CT] Stat CT Scan 01/03/18 14:08 Ordered - Medications Given in the ED: ED Medications Discontinued Medications Generic Name Dose Route Start Last Admin Trade Name Roger PRN Reason Stop Dose Admin Sodium Chloride 1,000 mls @ 1,000 mls/hr 01/03/18 14:06 01/03/18 15:18 Normal Saline - IV 01/03/18 15:05 1,000 mls/hr ASDIR STA Administration Morphine Sulfate 4 mg 01/03/18 14:06 01/03/18 15:18 Morphine Injection - IVPUSH 01/03/18 14:07 4 mg ONCE ONE Administration Ondansetron HCl 4 mg 01/03/18 14:06 01/03/18 15:24 Zofran Injection IVPUSH 01/03/18 14:07 Not Given ONCE ONE Medical Decision Making - Medical Decision Making 01/03/18 15:35 Patient is 62F with history of SBO, pancreatitis, s/p lubna, s/p btl, s/p gastric bypass, CAD here today with epigastric pain. Vitals notable for hypertension. DDx includes, but is not limited to: gastritis, pancreatitis, sbo , colitis, anastomosis leak. Will evaluate with abdominal labs, ekg, trop. EKG shows normal sinus rhythm with rate of 71. No st elevations/depressions. Normal axis. Normal intervals. No significant t wave abnormalities. 01/03/18 16:41 Laboratory Tests 01/03/18 01/03/18 01/03/18 14:30 15:06 15:06 WBC 6.7 Hgb 13.1 Plt Count 287 Sodium 134 L Random Glucose 136 H Troponin I Lipase 392 Urine Nitrite Negative Ur Leukocyte Esterase Negative 01/03/18 15:06 WBC Hgb Plt Count Sodium Random Glucose Troponin I < 0.03 Lipase Urine Nitrite Ur Leukocyte Esterase CBC normal. CMP reassuring. Lipase and trop negative. UA clear. Pending CT results. 01/03/18 17:36 Patient says that she feels so-so. Pain still present. CT scan shows partial SBO 01/03/18 18:04 D/w Candi Castaneda, admitted to Dr Bassett service. 01/03/18 18:23 D/w Dr Yoder, will consult. *DC/Admit/Observation/Transfer Diagnosis at time of Disposition: SBO (small bowel obstruction) - Discharge Dispostion Condition at time of disposition: Stable Decision to Admit order: Yes - Referrals - Patient Instructions - Post Discharge Activity
[2018-01-03] MEDS ORDERED: FAMOTIDINE 20 MG/50 ML IVPB 20 MG/50 ML MG IVPB ONE ×2 (15:59→16:17)
[2018-01-03 16:40] LABS: LIPASE 392 U/L (73-393)
[2018-01-03] MEDS ORDERED: ONDANSETRON 4 MG/2 ML VIAL IVPUSH PRN (19:39)
--- NOTE | 2018-01-03 19:49 | HP ---
Admitting History and Physical - Primary Care Physician PCP: Rosa Maria Hinojosa - Admission Chief Complaint: Epigastric Pain, Diarrhea. .. History of Present Illness: This is a 62 y/o female with past medical history of CAD,HTN, HLD, DM, SBO, Pancreatitis, s/p Cholecystectomy, s/p Gastric Bypass. Who presents to the ED for epigastric pain with 5 episodes of formed to watery stools. Patient reports constant epigastric pain x 1 week worse today. Patient reports having a fever with chills. Patient reports exposure to her granddaughter who has a viral illness. Patient denies cough, SOB, dizziness, CP, palpitations, vomiting, constipation, dysuria. History Source: Patient Limitations to Obtaining History: No Limitations - Past Medical History Cardiovascular: Yes: CAD, HTN, Hyperlipdemia Gastrointestinal: Yes: Diverticulitis, Pancreatitis, Other (SBO) Endocrine: Yes: Diabetes Mellitus - Past Surgical History Past Surgical History: Yes: Bariatric Surgery (gastric bypass 2008), CABG ( (JEREZ to LAD, SVG to rPDA, SVG to OM1, SVG to ramus)), Cholecystectomy, Stent , Tonsillectomy, Tubal Ligation - Smoking History Smoking history: Never smoked Have you smoked in the past 12 months: No Aproximately how many cigarettes per day: 0 - Alcohol/Substance Use Hx Alcohol Use: No History of Substance Use: reports: None - Social History ADL: Independent History of Recent Travel: No Home Medications - Allergies Allergies/Adverse Reactions: Allergies Allergy/AdvReac Type Severity Reaction Status Date / Time gatifloxacin [From Tequin] Allergy Severe Hives Verified 01/03/18 13:47 azithromycin Allergy Verified 01/03/18 13:47 codeine [Codeine] Allergy Verified 01/03/18 13:47 - Home Medications Home Medications: Ambulatory Orders Aspirin [ASA -] 81 mg PO DAILY 01/03/18 Family Disease History - Family Disease History Family Disease History: Heart Disease: Mother (HTN) Review of Systems - Review of Systems Constitutional: reports: Chills, Fever Eyes: reports: No Symptoms HENT: reports: No Symptoms Neck: reports: No Symptoms Cardiovascular: reports: No Symptoms Respiratory: reports: No Symptoms Gastrointestinal: reports: Abdominal Pain, Diarrhea, Nausea Genitourinary: reports: No Symptoms Breasts: reports: No Symptoms Reported Musculoskeletal: reports: No Symptoms Integumentary: reports: No Symptoms Neurological: reports: No Symptoms Endocrine: reports: No Symptoms Hematology/Lymphatic: reports: No Symptoms Psychiatric: reports: No Symptoms Pain Intensity: 5 Physical Examination Vital Signs: Vital Signs Temperature 97.9 F 01/03/18 18:18 Pulse Rate 73 01/03/18 18:18 Respiratory Rate 17 01/03/18 18:18 Blood Pressure 121/71 01/03/18 18:18 O2 Sat by Pulse Oximetry (%) 95 01/03/18 18:18 Constitutional: Yes: Mild Distress, Obese Eyes: Yes: WNL, Conjunctiva Clear, EOM Intact, PERRL HENT: Yes: WNL, Atraumatic, Normocephalic Neck: Yes: WNL, Supple, Trachea Midline Cardiovascular: Yes: WNL, Regular Rate and Rhythm, S1, S2 Respiratory: Yes: WNL, Regular, CTA Bilaterally Gastrointestinal: Yes: Abdomen, Obese, Tenderness (LMQ, LLQ), Tenderness, Epigastrium Renal/: Yes: WNL Breast(s): Yes: WNL Musculoskeletal: Yes: WNL Extremities: Yes: WNL Edema: No Peripheral Pulses WNL: Yes Integumentary: Yes: WNL Neurological: Yes: WNL, Alert, Oriented, Cran Nerves II-XII Intact ...Motor Strength: WNL Psychiatric: Yes: WNL, Alert, Oriented Labs: CBC, BMP 01/03/18 15:06 01/03/18 15:06 Laboratory Results - last 24 hr 01/03/18 01/03/18 01/03/18 14:30 15:06 15:06 WBC 6.7 RBC 4.49 Hgb 13.1 Hct 40.5 MCV 90.2 MCH 29.1 MCHC 32.3 RDW 14.0 Plt Count 287 MPV 8.1 Absolute Neuts (auto) 5.2 Neutrophils % 77.8 Lymphocytes % 13.1 Monocytes % 5.7 Eosinophils % 2.8 Basophils % 0.6 PT with INR INR Sodium 134 L Potassium 3.7 D Chloride 101 Carbon Dioxide 26 Anion Gap 7 L BUN 11 Creatinine 0.7 Creat Clearance w eGFR > 60 Random Glucose 136 H Calcium 9.3 Total Bilirubin 0.6 AST 21 D ALT 19 D Alkaline Phosphatase 94 H Creatine Kinase Troponin I Total Protein 7.8 Albumin 4.2 Lipase 392 Urine Color Yellow Urine Appearance Clear Urine pH 5.5 Ur Specific [place] 1.010 Urine Protein Negative Urine Glucose (UA) Negative Urine Ketones Negative Urine Blood Negative Urine Nitrite Negative Urine Bilirubin Negative Urine Urobilinogen 0.2 Ur Leukocyte Esterase Negative 01/03/18 01/03/18 01/03/18 15:06 15:06 15:06 WBC RBC Hgb Hct MCV MCH MCHC RDW Plt Count MPV Absolute Neuts (auto) Neutrophils % Lymphocytes % Monocytes % Eosinophils % Basophils % PT with INR 11.4 INR 1.02 Sodium Potassium Chloride Carbon Dioxide Anion Gap BUN Creatinine Creat Clearance w eGFR Random Glucose Calcium Total Bilirubin AST ALT Alkaline Phosphatase Creatine Kinase 90 Troponin I < 0.03 Total Protein Albumin Lipase Urine Color Urine Appearance Urine pH Ur Specific [place] Urine Protein Urine Glucose (UA) Urine Ketones Urine Blood Urine Nitrite Urine Bilirubin Urine Urobilinogen Ur Leukocyte Esterase Intake & Output 12/31/17 01/01/18 01/02/18 01/03/18 23:59 23:59 23:59 23:59 Intake Total 1050 Balance 1050 Weight 90.718 kg Imaging - Results X-ray: Report Reviewed, Image Reviewed EKG: Image Reviewed Problem List - Problems (1) SBO (small bowel obstruction) Assessment/Plan: CT report-partial SBO Appreciate Surgical consult Keep NPO Gentle IVF Monitor CBC, BMP Monitor vitals Pain Mgmt- Morphine Sulfate prn Code(s): K56.609 - UNSP INTESTNL OBST, UNSP TO PARTIAL VERSUS COMPLETE OBST (2) Diverticulitis Assessment/Plan: CTAP- partial SBO, possible interval development concentric wall edema is noted involving the duodenal cap. Correlation with follow-up CT, versus an upper gastrointestinal series or endoscopy suggested. Interval resolution of cecal/ pericecal soft tissue edema is noted which may be on the basis of acute diverticulitis (versus colitis) No leukocytosis, no neutrophilia, pt is afebrile Will start on Zosyn, secondary to Macrolide and Quinolone allergies Appreciate ID consult Morphine Sulfate prn Monitor CBC, BMP Monitor vitals Gentle IVF Code(s): K57.92 - DVTRCLI OF INTEST, PART UNSP, W/O PERF OR ABSCESS W/O BLEED Qualifiers: Diverticulitis site: large intestine Diverticulitis bleeding: without bleeding Diverticulitis complication: without perforation or abscess Qualified Code(s): K57.32 - Diverticulitis of large intestine without perforation or abscess without bleeding (3) CAD (coronary artery disease) of artery bypass graft Assessment/Plan: stable No active CP, no SOB Continue statin Code(s): I25.810 - ATHEROSCLEROSIS OF CABG W/O ANGINA PECTORIS (4) HLD (hyperlipidemia) Assessment/Plan: No current med listed Should restart Lipitor for CAD hx upon surgical evaluation Code(s): E78.5 - HYPERLIPIDEMIA, UNSPECIFIED (5) HTN (hypertension) Assessment/Plan: Stable Monitor BP Will need to verify with patient's pharmacy in am- current meds Monitor renal function Code(s): I10 - ESSENTIAL (PRIMARY) HYPERTENSION Assessment/Plan 62 y/o with a PMHx of SBO, Pancreatitis, CAD s/p Quadriple Bypass, s/p Cardiac Stents, s/p Cholecystectomy, s/p Gastric Bypass. Admitted for Partial SBO, Acute Diverticulitis for further evaluation of their emergent condition. Plan: FEN D51/2NS@75ml/hr Replete lytes prn NPO DVT ppx OOB SCDs Heparin SQ Dispo: Requires Inpatient Care Visit type - Emergency Visit Emergency Visit: Yes ED Registration Date: 01/03/18 Care time: The patient presented to the Emergency Department on the above date and was hospitalized for further evaluation of their emergent condition. - New Patient This patient is new to me today: Yes Date on this admission: 01/03/18 - Critical Care Critical Care patient: No
[2018-01-03 22:31] VITALS: BMI 34.2
--- NOTE | 2018-01-04 08:17 | PN ---
Physical Exam: SUBJECTIVE: Patient seen and examined. Several minutes ago experienced mid- sternal chest pressure that lasted a few minutes. Patient was in bed watching TV when it occurred and it resolved without intervention. Denies SOB, palpitations, dizziness, diaphoresis. OBJECTIVE: Vital Signs Period Temp Pulse Resp BP Sys/Sams Pulse Ox Last 24 Hr 97.5 F-98.3 F 63-80 16-18 105-186/59-96 95-99 GENERAL: The patient is awake, alert, and fully oriented, in no acute distress. LUNGS: Breath sounds equal, clear to auscultation bilaterally, no wheezes, no crackles, no accessory muscle use. HEART: Regular rate and rhythm, S1, S2 without murmur, rub or gallop. ABDOMEN: Soft, nontender, nondistended; bowel sounds on left, none on right; no guarding, no rebound EXTREMITIES: 2+ pulses, warm, well-perfused, no edema. NEUROLOGICAL: Cranial nerves II through XII grossly intact. Normal speech, gait not observed. Laboratory Results - last 24 hr 01/03/18 01/03/18 01/03/18 14:30 15:06 15:06 WBC 6.7 RBC 4.49 Hgb 13.1 Hct 40.5 MCV 90.2 MCH 29.1 MCHC 32.3 RDW 14.0 Plt Count 287 MPV 8.1 Absolute Neuts (auto) 5.2 Neutrophils % 77.8 Lymphocytes % 13.1 Monocytes % 5.7 Eosinophils % 2.8 Basophils % 0.6 PT with INR INR Sodium 134 L Potassium 3.7 D Chloride 101 Carbon Dioxide 26 Anion Gap 7 L BUN 11 Creatinine 0.7 Creat Clearance w eGFR > 60 Random Glucose 136 H Calcium 9.3 Total Bilirubin 0.6 AST 21 D ALT 19 D Alkaline Phosphatase 94 H Creatine Kinase Troponin I Total Protein 7.8 Albumin 4.2 Lipase 392 Urine Color Yellow Urine Appearance Clear Urine pH 5.5 Ur Specific [place] 1.010 Urine Protein Negative Urine Glucose (UA) Negative Urine Ketones Negative Urine Blood Negative Urine Nitrite Negative Urine Bilirubin Negative Urine Urobilinogen 0.2 Ur Leukocyte Esterase Negative 01/03/18 01/03/18 01/03/18 15:06 15:06 15:06 WBC RBC Hgb Hct MCV MCH MCHC RDW Plt Count MPV Absolute Neuts (auto) Neutrophils % Lymphocytes % Monocytes % Eosinophils % Basophils % PT with INR 11.4 INR 1.02 Sodium Potassium Chloride Carbon Dioxide Anion Gap BUN Creatinine Creat Clearance w eGFR Random Glucose Calcium Total Bilirubin AST ALT Alkaline Phosphatase Creatine Kinase 90 Troponin I < 0.03 Total Protein Albumin Lipase Urine Color Urine Appearance Urine pH Ur Specific [place] Urine Protein Urine Glucose (UA) Urine Ketones Urine Blood Urine Nitrite Urine Bilirubin Urine Urobilinogen Ur Leukocyte Esterase Active Medications Generic Name Dose Route Start Last Admin Trade Name Freq PRN Reason Stop Dose Admin Dextrose/Sodium Chloride 1,000 mls @ 75 mls/hr 01/03/18 19:45 D5-1/2ns - IV ASDIR KATHY Morphine Sulfate 4 mg 01/03/18 21:15 Morphine Sulfate IVPUSH Q6H PRN PAIN LEVEL 7 - 10 Ondansetron HCl 4 mg 01/03/18 19:39 Zofran Injection IVPUSH Q6H PRN NAUSEA AND/OR VOMITING ASSESSMENT/PLAN: 62 year-old female with a PMH significant for HTN, HLD, CAD s/p CABG x 4 (2004) s/p stents x 8 (2011), NIDDM x 10 years, pancreatitis, h/o SBO, s/p cholecystectomy, s/p gastric bypass (2005, Alex), s/p c-sections x 4. Admitted for a SBO. Small bowel obstruction Multiple abdominal surgeries --h/o multiple abdominal surgeries --last SBO several years ago, resolved with conservative management --seen and evaluated by Dr. Johnson who performed gastric bypass in 2005, medical management for now --no nausea/vomiting at present so hold off NGT --several diarrheal episodes yesterday, none today --NPO except ice chips --afebrile, no leukocytosis, observe off antibiotics Chest pain CAD s/p CABG x 4 s/p stents x 8 --only home cardiac med is ASA 81mg; has not sought regular medical care in a year since son --ASA 325mg x 1 given after report of chest pain --troponin neg x 2 --CXR unremarkable --replete K>4, Mg>2 --echo ordered --cardiology consult requested; will need pre-op clearance Hypertension --BP stable, on no meds Hyperlipidemia --not on statin NIDDM --Novolog sliding scale coverage FEN Fluids: D51/2NS @ 75mL/hr Electrolytes: replete as indicated Nutrition: NPO DVT prophylaxis: subq heparin Dispo: continues to require inpatient care. Full code. Visit type - Emergency Visit Emergency Visit: Yes ED Registration Date: 01/03/18 Care time: The patient presented to the Emergency Department on the above date and was hospitalized for further evaluation of their emergent condition. - New Patient This patient is new to me today: Yes Date on this admission: 01/04/18 - Critical Care Critical Care patient: No
[2018-01-04 08:32] LABS: BASO % 0.3 % (0-2.0); EOS % 4.1 % (0-4.5); HEMOGLOBIN 10.9 GM/dl (10.7-15.3); LYMPH % 24.4 % (8-40); MCH 30.5 pg (25.7-33.7); MCHC 34.1 g/dl (32.0-36.0); MEAN CELL VOLUME 89.3 fl (80-96); MONO % 10.5 % (3.8-10.2); NEUT % 60.7 % (42.8-82.8); PLATELET COUNT 228 K/MM3 (134-434); RBC 3.58 M/mm3 (3.60-5.2); RDW 13.5 % (11.6-15.6); WHITE BLOOD COUNT 4.1 K/mm3 (4.0-10.8)
[2018-01-04 08:41] LABS: ANION GAP 7 MMOL/L (8-16); BLOOD UREA NITROGEN 8 mg/dl (7-18); CALCIUM 8.4 mg/dl (8.4-10.2); CHLORIDE 104 mmol/L (98-107); CO2 28 mmol/L (22-28); CREATININE 0.7 mg/dl (0.6-1.3); GLUCOSE,RANDOM 140 mg/dl (74-106); MAGNESIUM 1.9 mg/dL (1.8-2.4); PHOSPHOROUS 3.1 mg/dl (2.5-4.6); POTASSIUM 3.8 mmol/L (3.5-5.1); SODIUM 139 mmol/L (136-145)
[2018-01-04] MEDS ORDERED: PIPERACILLIN/TAZOB 4.5 GM 4.5 GM in DEXTROSE 5%-WATER 100 ML IVPB SCH ×2 (09:30→15:00)
[2018-01-04] MEDS ORDERED: PIPERACILLIN/TAZOB 4.5 GM 4.5 GM in DEXTROSE 5%-WATER 100 ML IVPB ONE (09:30)
[2018-01-04] MEDS ORDERED: PIPERACILLIN/TAZOBACTAM 4.5 GM VIAL IVPB ONE ×2 (10:05→17:26)
[2018-01-04] MEDS ORDERED: DEXTROSE 5%-WATER 100 ML IVPB ONE ×2 (10:05→17:25)
[2018-01-04] MEDS: DEXTROSE 5%-0.45% SALINE 1,000 ML IV SCH ×2 (10:29→21:29)
[2018-01-04] MEDS: HEPARIN NA (PORCINE) 5,000 UNITS/ML 1ML VIAL SQ SCH ×2 (10:30→21:30)
[2018-01-04] MEDS: morphine SULFATE 4 MG/ML VIAL IVPUSH PRN (11:03)
--- NOTE | 2018-01-04 11:09 | PN ---
Progress Note (short form) - Note Progress Note: Surgery 62f with lgb [place] [address] Johnson? presents with possible sbo located at jejuno -jenjunostomy. Recommend eval by Dr Johnson and if unavailable should be transferred to tertiary care center with bariatric surgery. This anastamosis may need to be revised and should be done by bariatric surgery. Spoke with primary care team.
--- NOTE | 2018-01-04 11:54 | EKG ---
Test Reason : Blood Pressure : / mmHG Vent. Rate : 071 BPM Atrial Rate : 071 BPM P-R Int : 146 ms QRS Dur : 082 ms QT Int : 404 ms P-R-T Axes : 051 013 -22 degrees QTc Int : 439 ms NORMAL SINUS RHYTHM CANNOT RULE OUT INFERIOR INFARCT , AGE UNDETERMINED ABNORMAL ECG WHEN COMPARED WITH ECG OF 27-JAN-2017 17:38, MINIMAL CRITERIA FOR INFERIOR INFARCT ARE NOW PRESENT NONSPECIFIC T WAVE ABNORMALITY NOW EVIDENT IN LATERAL LEADS Confirmed by RODRIGO LONGO MD ([id number]) on 01/04/2018 11:54:45 AM Referred By: Pop Bassett Confirmed By:RODRIGO LONGO MD
[2018-01-04] MEDS ORDERED: ASPIRIN 325 MG TABLET PO ONE (13:30)
[2018-01-04] MEDS ORDERED: ASPIRIN 325 MG ENTERIC COATED TABLET (FP) PO ONE (13:30)
[2018-01-04 14:40] LABS: BASO % 0.6 % (0-2.0); HEMOGLOBIN 10.7 GM/dl (10.7-15.3); LYMPH % 31.8 % (8-40); MCH 28.9 pg (25.7-33.7); MCHC 32.3 g/dl (32.0-36.0); MEAN CELL VOLUME 89.4 fl (80-96); MEAN PLT VOLUME 8.2 fl (7.5-11.1); MONO % 8.5 % (3.8-10.2); NEUT % 55.1 % (42.8-82.8); PLATELET COUNT 218 K/MM3 (134-434); WHITE BLOOD COUNT 3.6 K/mm3 (4.0-10.8)
[2018-01-04 14:42] LABS: ALK PHOS 84 U/L (32-92); ANION GAP 5 MMOL/L (8-16); BILIRUBIN,TOTAL 0.6 mg/dl (0.2-1.0); BLOOD UREA NITROGEN 8 mg/dl (7-18); CALCIUM 8.3 mg/dl (8.4-10.2); CHLORIDE 105 mmol/L (98-107); CO2 27 mmol/L (22-28); CREATININE 0.6 mg/dl (0.6-1.3); GLUCOSE,RANDOM 129 mg/dl (74-106); MAGNESIUM 1.9 mg/dL (1.8-2.4); POTASSIUM 3.6 mmol/L (3.5-5.1); SGOT/AST 86 U/L (10-42); SGPT/ALT 47 U/L (10-40); SODIUM 137 mmol/L (136-145); TOT PROT 5.6 g/dl (6.4-8.3)
--- NOTE | 2018-01-04 14:49 | CONSULT ---
Consult - text type - Consultation Consultation Note: Asked to see this 62 yo woman who C/O intermittent abdominal pain for a few days. The pt had a laparoscopic Gastric Bypass in 2005. Sha had similar complaints in 2016 which resolved with non-operative therapy Pt states pain is worse when eating Rare vomiting PMH- CAD, Hyperlipidemia, DM, Pancreatitis ? PSH- Open cholecystectomy, LAp Gastric Bypass, multiple C-sections P/E- Gen- Awake, alert, Mild discomfort Abd- well-healed incisions soft, mild mid-abdominal pain on deep palpation WBC-3.6 H/H- 10.7/33 BUN/CR-8/0.6 CO2-27 CT scan - Dilated proximal jejunum Probable J-J anastomotic stricture vs partial obstruction Distal stomach not distended I- Partial Small Bowel Obstruction Rec- NPO (may have ice chips) Daily labs Close daily evaluations
[2018-01-04] MEDS ORDERED: MAGNESIUM SULF 50% (8.12 MEQ/2 ML-1 GM VIAL) IVPB ONE (15:48)
[2018-01-04] MEDS ORDERED: POTASSIUM CHLORIDE TABS 20 MEQ TABLET.ER (FP) PO SCH (16:00)
--- NOTE | 2018-01-04 16:06 | CON.CARD ---
Consult Consult Specialty:: cardio Reason for Consultation:: cp - History of Present Illness Chief Complaint: cp History of Present Illness: 62 F here with partial SBO, c/o'd brief (few min) sternal CP at rest today. notes state the cp occurred around 8am. lasted few min she says. no radiation. located mid-sternum. no sob, but + assctd diaph. ECG done today was not signif changed vs prior. Sees Marsha for cardio, h/o CABG. does not recall if ever had cp (or other sx) as angina syndrome prior to CABG. hasn't seen cardio in a while b/c lost her medical insurance. states she is under very hi mental stress at home due to caring directly for 3 special needs grandchildren. has had a couple of other episodes of similar CP in the past several weeks. always at rest, similarly located (mid-sternal) without radiation, brief and resolved on its own each time. denies bloating/belching/gas sensation or acid/heartburn with it. denies any cp, sob or decr E.T. with activity/walking. PMH: CAD HTN obesity - Past Medical History Cardio/Vascular: Yes: CAD, HTN, Hyperlipdemia Gastrointestinal: Yes: Diverticulitis, Pancreatitis, Other (SBO) Endocrine: Yes: Diabetes Mellitus Additional Medical History: Restless leg syndrome - Past Surgical History Past Surgical History: Yes: Bariatric Surgery (gastric bypass 2008), CABG ( (JEREZ to LAD, SVG to rPDA, SVG to OM1, SVG to ramus)), Cholecystectomy, Stent , Tonsillectomy, Tubal Ligation - Alcohol/Substance Use Hx Alcohol Use: No History of Substance Use: reports: None - Smoking History Smoking history: Never smoked Have you smoked in the past 12 months: No Aproximately how many cigarettes per day: 0 - Social History ADL: Independent History of Recent Travel: No Home Medications - Allergies Allergies/Adverse Reactions: Allergies Allergy/AdvReac Type Severity Reaction Status Date / Time gatifloxacin [From Tequin] Allergy Severe Hives Verified 01/03/18 13:47 azithromycin Allergy Verified 01/03/18 13:47 codeine [Codeine] Allergy Verified 01/03/18 13:47 - Home Medications Home Medications: Ambulatory Orders Aspirin [ASA -] 81 mg PO DAILY 01/03/18 Family Disease History - Family Disease History Family Disease History: Heart Disease: Mother (HTN) Review of Systems - Review of Systems Constitutional: denies: Chills, Fever Eyes: denies: Eye Pain HENT: denies: Nasal Congestion Neck: denies: Stiffness Cardiovascular: denies: Palpitations Respiratory: denies: Orthopnea, PND Gastrointestinal: denies: Diarrhea, Rectal Bleeding Genitourinary: denies: Burning, Hematuria Musculoskeletal: denies: Muscle Pain Integumentary: denies: Rash Neurological: denies: Numbness, Seizure, Syncope Endocrine: denies: Excessive Sweating Hematology/Lymphatic: denies: Excessive Bleeding Vital Signs: Vital Signs Temperature 98.0 F 01/04/18 14:00 Pulse Rate 58 L 01/04/18 14:00 Respiratory Rate 01/04/18 14:00 Blood Pressure 133/71 01/04/18 14:00 O2 Sat by Pulse Oximetry (%) 97 01/04/18 14:00 Constitutional: Yes: No Distress, Obese Eyes: No: Sclera Icterus HENT: No: Nasal Congestion Neck: No: Decreased ROM Respiratory: Yes: CTA Bilaterally. No: Accessory Muscle Use Gastrointestinal: Yes: Normal Bowel Sounds. No: Distention, Hepatomegaly, Palpable Mass, Tenderness Cardiovascular: Yes: Regular Rate and Rhythm JVD: No Carotid Bruit: No PMI: Non-Displaced Heart Sounds: Yes: S1, S2. No: Gallop Murmur: No: Systolic Murmur, Diastolic Murmur Musculoskeletal: Yes: Other (No kyphosis) Extremities: No: Cool, Cyanosis Edema: No Peripheral Pulses: 2+ Left Carotid, 2+ Right Carotid, 2+ Left Doralis Pedis, 2+ Right Dorsalis Pedis Integumentary: No: Jaundice Neurological: Yes: Alert, Oriented (x3) Psychiatric: No: Agitated - Other Data Labs, Other Data: CBC, BMP 01/04/18 14:15 01/04/18 14:15 INR, PTT INR 1.02 (0.82-1.09) 01/03/18 15:06 Troponin, BNP 01/04/18 14:15 Troponin I < 0.03 Troponin, BNP 01/04/18 14:15 Troponin I < 0.03 Laboratory Tests 01/03/18 01/04/18 01/04/18 15:06 14:15 14:15 WBC 3.6 L Hgb 10.7 Plt Count 218 Sodium 137 Potassium 3.6 Carbon Dioxide 27 BUN 8 Creatinine 0.6 AST 86 H D ALT 47 H D Troponin I < 0.03 01/04/18 14:15 WBC Hgb Plt Count Sodium Potassium Carbon Dioxide BUN Creatinine AST ALT Troponin I < 0.03 Assessment/Plan ECG 01/03: NSR, no path q's or ST-T abn ECG 01/04: NSR, T waves flattened vs prior CXR: clear lungs/pleura tele: NSR CAD, chest pain: -h/o CABG 2011 (JEREZ to LAD, SVG to rPDA, SVG to OM2, SVG to ramus). -outside nuclear stress test 2013 (per 2017 cardio consult here) showed small area lateral wall ischemia. -preserved LVEF as of 2014 outside echo (per 01/2017 cardio consult note here) -no recent stress test. -nonexertional CP here non-anginal description, brief/self-limited. at least 2 other episodes of late, similar description. -repeat ECG today no ischemic changes -trend cardiac enzymes -she suspects cp are mental-stress related (very hi level of late) and this is a likely explanation, given only happens at rest and never with exertion. -no features of the cp suspicious for angina. -if cardiac enzymes negative, would rec observing for any change in sx's--if no suspicious features would defer ischemia w/u. -resume home CAD med regimen once taking PO, per surgeon rec.s (ok to hold anti- PLT meds if surgery is a possibility here) -defer IV bb, unless recurrent CP suspicious for ischemic etiology SBO, h/o gastric bypass: -per Dr. Johnson, conservative mgmt at present HTN: -bp stable -cont current meds elevated LFTs: -per hospitalist -monitor trend (statin on hold due to pt NPO status)
[2018-01-04] MEDS: INSULIN SLIDING SCALE (NOVOLOG) 1 VIAL SQ SCH ×2 (16:22→21:29)
[2018-01-04] MEDS: POTASSIUM CHLORIDE TABS 20 MEQ TABLET.ER (FP) PO SCH (16:22)
[2018-01-04] MEDS ORDERED: ACETAMINOPHEN/CAFFEINE/BUTALBITAL 1 TAB PO PRN (16:28)
[2018-01-04] MEDS: PIPERACILLIN/TAZOB 4.5 GM 4.5 GM in DEXTROSE 5%-WATER 100 ML IVPB SCH (17:37)
[2018-01-05] MEDS ORDERED: PIPERACILLIN/TAZOBACTAM 4.5 GM VIAL IVPB ONE (03:30)
[2018-01-05] MEDS ORDERED: DEXTROSE 5%-WATER 100 ML IVPB ONE (03:30)
[2018-01-05] MEDS: PIPERACILLIN/TAZOB 4.5 GM 4.5 GM in DEXTROSE 5%-WATER 100 ML IVPB SCH (03:59)
[2018-01-05] MEDS: INSULIN SLIDING SCALE (NOVOLOG) 1 VIAL SQ SCH ×4 (06:41→21:32)
--- NOTE | 2018-01-05 09:23 | PN ---
Progress Note (short form) - Note Progress Note: ID consult dictated Partial SBO D/C antibiotics Mgt per surgery
--- NOTE | 2018-01-05 09:42 | ECHO ---
Name: TROY YAMEL Exam:Adult Echocardiogram Study Date: 01/05/2018 07:55 AM Age: 62 yrs Reason For Study: Chest pain Height: 64 in Weight: 198 lb BSA: 2.0 m2 MMode/2D Measurements & Calculations IVSd: 1.0 cm Ao root diam: 2.5 cm LVIDd: 4.3 cm LA dimension: 3.6 cm LVIDs: 3.1 cm LVPWd: 0.82 cm EDV(Teich): 82.2 ml ESV(Teich): 37.1 ml Doppler Measurements & Calculations MV E max perry: 88.2 cm/sec MV A max perry: 20.4 cm/sec MV dec slope: 608.3 cm/sec2 MV E/A: 4.3 MR max perry: 174.3 cm/sec TR max perry: 211.2 cm/sec MR max P.2 mmHg TR max P.9 mmHg Left Ventricle Left ventricular systolic function is grossly normal. Ejection Fraction = 50-55%. Right Ventricle The right ventricle is grossly normal size. The right ventricular systolic function is grossly normal . Atria Normal left and right atrial size and function. Mitral Valve The mitral valve is normal in structure and function. There is no mitral valve stenosis. There is mil d mitral regurgitation. Tricuspid Valve The tricuspid valve is normal in structure and function. There is mild tricuspid regurgitation. Right ventricular systolic pressure is normal. Aortic Valve There is mild aortic sclerosis.;. No hemodynamically significant valvular aortic stenosis. No aortic regurgitation is present. Pulmonic Valve The pulmonic valve is not well seen, but is grossly normal. There is no pulmonic valvular stenosis. M ild pulmonic valvular regurgitation. Great Vessels The aortic root is normal size. Pericardium/Pleura There is no pericardial effusion. Interpretation Summary Left ventricular systolic function is grossly normal. Ejection Fraction = 50-55%. There is mild mitral regurgitation. There is mild tricuspid regurgitation. Right ventricular systolic pressure is normal. There is mild aortic sclerosis.; There is no pericardial effusion. MD Vanegas *Che 01/05/2018 09:41 AM
--- NOTE | 2018-01-05 10:19 | CONS ---
DATE OF CONSULTATION: DATE OF DICTATION: 01/05/2018 HISTORY OF PRESENT ILLNESS: The patient is a 62-year-old female with a history of gastric bypass evaluated for possible diverticulitis. She presented to the emergency room on January 03, 2018, with mid-abdominal pain, nausea, vomiting, and loose bowel movements for 2 days prior to admission. The pain was exacerbated by eating. CT scan of the abdomen and pelvis showed proximal small bowel obstruction at the level of the mid abdomen. There was also mention of interval resolution of pericecal mesenteric soft tissue edema, which may have been on the basis of acute diverticulitis. She was seen in consultation by Surgery, whose opinion was that patient was likely suffering from a recurrent partial small bowel obstruction secondary to possible jejunostomy anastomotic stricture versus partial obstruction. Patient was kept n.p.o. She has remained afebrile. White blood cell count normal. Blood cultures preliminarily negative. PAST MEDICAL HISTORY: Positive for coronary artery disease, diabetes mellitus, hypertension, history of diverticulosis, pancreatitis, history of small bowel obstruction in 2015, which was treated conservatively and had resolved. PAST SURGICAL HISTORY: Status post cholecystectomy, gastric bypass 2005, coronary artery bypass graft, tubal ligation. ALLERGIES: To TEQUIN, ZITHROMAX, CODEINE (rash with TEQUIN). MEDICATIONS: At home include aspirin. LABORATORY DATA: White count 3.6, 55 neutrophils, 31 lymphocytes, 8 monocytes, hematocrit 33.0, platelet count 218. BUN 8, creatinine 0.6. Chest x-ray negative. Urinalysis negative. Total bilirubin 0.6, alkaline phosphatase 84, AST 86, ALT 47. PHYSICAL EXAMINATION: General: On exam, she is supine in bed. She is in no acute distress. Vital signs: Temperature 97.9, blood pressure 125/46, pulse 56 and regular, respirations 18 per minute. HEENT: Sclerae anicteric. Heart: Heart sounds S1, S2. Lungs: Clear. Abdomen: Soft. There is epigastric tenderness to palpation. No mass, rebound, or rigidity. Extremities: 1+ edema. IMPRESSION: 1. Partial small bowel obstruction. 2. History of laparoscopic gastric bypass. 3. No evidence of acute diverticulitis, perforation, or abscess on CT scan. Patient is afebrile. White count has been normal. Will DC antibiotics, continue management as per Surgery. Please reconsult as needed. Thank you for the kind referral. BRITNI CASTANO M.D. [id number]
[2018-01-05] MEDS: HEPARIN NA (PORCINE) 5,000 UNITS/ML 1ML VIAL SQ SCH ×2 (10:51→21:47)
[2018-01-05] MEDS: POTASSIUM CHLORIDE TABS 20 MEQ TABLET.ER (FP) PO SCH (10:51)
--- NOTE | 2018-01-05 12:52 | PN ---
Physical Exam: SUBJECTIVE: Patient seen and examined. Voices no complaints. No further episodes of chest pain. Had BM this morning, passing flatus. OBJECTIVE: Vital Signs Period Temp Pulse Resp BP Sys/Sams Pulse Ox Last 24 Hr 97.8 F-98.2 F 56-68 16-18 121-144/49-71 95-97 GENERAL: The patient is awake, alert, and fully oriented, in no acute distress. LUNGS: Breath sounds equal, clear to auscultation bilaterally, no wheezes, no crackles, no accessory muscle use. HEART: Regular rate and rhythm, S1, S2 without murmur, rub or gallop. ABDOMEN: Soft, nontender, nondistended; bowel sounds x 4 quadrants EXTREMITIES: 2+ pulses, warm, well-perfused, no edema. NEUROLOGICAL: Cranial nerves II through XII grossly intact. Normal speech, gait not observed. Laboratory Results - last 24 hr 01/04/18 01/04/18 01/04/18 10:36 14:15 14:15 WBC 3.6 L RBC 3.70 Hgb 10.7 Hct 33.0 MCV 89.4 MCH 28.9 MCHC 32.3 RDW 14.0 Plt Count 218 MPV 8.2 Absolute Neuts (auto) 2.1 Neutrophils % 55.1 Lymphocytes % 31.8 Monocytes % 8.5 Eosinophils % 4.0 Basophils % 0.6 Sodium 137 Potassium 3.6 Chloride 105 Carbon Dioxide 27 Anion Gap 5 L BUN 8 Creatinine 0.6 Creat Clearance w eGFR > 60 POC Glucometer Random Glucose 129 H Lactic Acid Calcium 8.3 L Magnesium 1.9 Total Bilirubin 0.6 AST 86 H D ALT 47 H D Alkaline Phosphatase 84 D Troponin I Total Protein 5.6 L D Albumin 3.0 L Blood Type B POSITIVE Antibody Screen Negative 01/04/18 01/04/18 01/04/18 14:15 14:15 16:18 WBC RBC Hgb Hct MCV MCH MCHC RDW Plt Count MPV Absolute Neuts (auto) Neutrophils % Lymphocytes % Monocytes % Eosinophils % Basophils % Sodium Potassium Chloride Carbon Dioxide Anion Gap BUN Creatinine Creat Clearance w eGFR POC Glucometer 113 Random Glucose Lactic Acid 0.4 Calcium Magnesium Total Bilirubin AST ALT Alkaline Phosphatase Troponin I < 0.03 Total Protein Albumin Blood Type Antibody Screen 01/04/18 01/04/18 01/05/18 20:30 21:28 02:00 WBC RBC Hgb Hct MCV MCH MCHC RDW Plt Count MPV Absolute Neuts (auto) Neutrophils % Lymphocytes % Monocytes % Eosinophils % Basophils % Sodium Potassium Chloride Carbon Dioxide Anion Gap BUN Creatinine Creat Clearance w eGFR POC Glucometer 142 Random Glucose Lactic Acid Calcium Magnesium Total Bilirubin AST ALT Alkaline Phosphatase Troponin I < 0.03 0.04 Total Protein Albumin Blood Type Antibody Screen 01/05/18 01/05/18 06:38 12:33 WBC RBC Hgb Hct MCV MCH MCHC RDW Plt Count MPV Absolute Neuts (auto) Neutrophils % Lymphocytes % Monocytes % Eosinophils % Basophils % Sodium Potassium Chloride Carbon Dioxide Anion Gap BUN Creatinine Creat Clearance w eGFR POC Glucometer 153 147 Random Glucose Lactic Acid Calcium Magnesium Total Bilirubin AST ALT Alkaline Phosphatase Troponin I Total Protein Albumin Blood Type Antibody Screen Active Medications Generic Name Dose Route Start Last Admin Trade Name Freq PRN Reason Stop Dose Admin Acetaminophen/Butalbital/Caffeine 1 tablet 01/04/18 16:28 01/04/18 16:42 Fioricet - PO 1 tablet Q6H PRN Administration HEADACHE Heparin Sodium (Porcine) 5,000 unit 01/04/18 10:00 01/05/18 10:51 Heparin - SQ 5,000 unit BID KATHY Administration Dextrose/Sodium Chloride 1,000 mls @ 75 mls/hr 01/03/18 19:45 01/04/18 21:29 D5-1/2ns - IV 75 mls/hr ASDIR KATHY Administration Insulin Aspart 1 vial 01/04/18 16:30 01/05/18 12:42 Novolog Vial Sliding Scale - SQ Not Given ACHS [facility] Protocol Morphine Sulfate 4 mg 01/03/18 21:15 01/04/18 11:03 Morphine Sulfate IVPUSH 4 mg Q6H PRN Administration PAIN LEVEL 7 - 10 Ondansetron HCl 4 mg 01/03/18 19:39 Zofran Injection IVPUSH Q6H PRN NAUSEA AND/OR VOMITING Potassium Chloride 40 meq 01/04/18 17:00 01/05/18 10:51 K-Dur - PO 40 meq DAILY KATHY Administration ASSESSMENT/PLAN: 62 year-old female with a PMH significant for HTN, HLD, CAD s/p CABG x 4 (2004) s/p stents x 8 (2011), NIDDM x 10 years, pancreatitis, h/o SBO, s/p cholecystectomy, s/p gastric bypass (2006, Alex), s/p c-sections x 4. Admitted for a SBO. Small bowel obstruction Multiple abdominal surgeries Gastric bypass 2005 --01/03 CTAP: partial proximal SBO --h/o multiple abdominal surgeries, previous SBO resolved with conservative management --small BMs, passing flatus --afebrile, no leukocytosis, continue observe off antibiotics --Dr. Johnson following Chest pain CAD s/p CABG x 4 s/p stents x 8 --troponin neg x 3; ECG no ischemic changes; CXR unremarkable --01/05 echo: LV normal; RV normal; mild MR; mild TR; mild PI --per Dr. Hamilton, will need ischemia evaluation with pharm MPI prior to elective surgery --cardiology following Hypertension --BP stable, on no meds Hyperlipidemia --not on statin NIDDM --Novolog sliding scale coverage FEN Fluids: D51/2NS @ 75mL/hr Electrolytes: replete as indicated; K>4, Mg>2 Nutrition: NPO DVT prophylaxis: subq heparin Dispo: continues to require inpatient care. Full code. Visit type - Emergency Visit Emergency Visit: Yes ED Registration Date: 01/03/18 Care time: The patient presented to the Emergency Department on the above date and was hospitalized for further evaluation of their emergent condition. - New Patient This patient is new to me today: No - Critical Care Critical Care patient: No
--- NOTE | 2018-01-05 16:13 | PN ---
Progress Note, Physician Chief Complaint: no cp today no sob, palpitations, syncope keeping liquids down (tea) - Current Medication List Current Medications: Active Medications Acetaminophen/Butalbital/Caffeine (Fioricet -) 1 tablet PO Q6H PRN PRN Reason: HEADACHE Last Admin: 01/04/18 16:42 Dose: 1 tablet Heparin Sodium (Porcine) (Heparin -) 5,000 unit SQ BID [facility] Last Admin: 01/05/18 10:51 Dose: 5,000 unit Dextrose/Sodium Chloride (D5-1/2ns -) 1,000 mls @ 75 mls/hr IV ASDIR [facility] Last Admin: 01/04/18 21:29 Dose: 75 mls/hr Insulin Aspart (Novolog Vial Sliding Scale -) 1 vial SQ ACHS [facility]; Protocol Last Admin: 01/05/18 12:42 Dose: Not Given Morphine Sulfate (Morphine Sulfate) 4 mg IVPUSH Q6H PRN PRN Reason: PAIN LEVEL 7 - 10 Last Admin: 01/04/18 11:03 Dose: 4 mg Ondansetron HCl (Zofran Injection) 4 mg IVPUSH Q6H PRN PRN Reason: NAUSEA AND/OR VOMITING Potassium Chloride (K-Dur -) 40 meq PO DAILY [facility] Last Admin: 01/05/18 10:51 Dose: 40 meq - Objective Vital Signs: Vital Signs Temperature 98.1 F 01/05/18 14:30 Pulse Rate 66 01/05/18 14:30 Respiratory Rate 18 01/05/18 14:30 Blood Pressure 142/76 01/05/18 14:30 O2 Sat by Pulse Oximetry (%) 96 01/05/18 14:30 Constitutional: Yes: Well Nourished, No Distress, Calm, Obese Cardiovascular: Yes: Regular Rate and Rhythm, S1, S2. No: Gallop, Murmur Respiratory: Yes: Regular, CTA Bilaterally. No: Accessory Muscle Use, Rales, Wheezes Extremities: No: Cold Edema: No Neurological: Yes: Alert, Oriented Psychiatric: No: Agitated Labs: CBC, BMP 01/04/18 14:15 01/04/18 14:15 INR, PTT INR 1.02 (0.82-1.09) 01/03/18 15:06 Assessment/Plan ECG 01/03: NSR, no path q's or ST-T abn ECG 01/04: NSR, T waves flattened vs prior CXR: clear lungs/pleura tele: NSR preop CV eval: -Revised CV Risk Index = 1, unknown functional status -having atypical CP wit no clear anginal features, however pt s/p CABG with no recent ischemia eval -requires ischemia eval with pharm MPI prior to elective non-cardiac surgery, for accurate risk stratification (ordered for 01/08 if still here in hospital) -PLEASE NOTE: if pt's SBO resolves with non-operative treatment, there is no need for stress testing if remains without recurrent cp CAD, chest pain: -h/o CABG 2011 (JEREZ to LAD, SVG to rPDA, SVG to OM2, SVG to ramus). -outside nuclear stress test 2013 (per 2017 cardio consult here) showed small area lateral wall ischemia. -preserved LVEF as of 2014 outside echo (per 01/2017 cardio consult note here) -no recent stress test. -non-exertional CP here non-anginal description, brief/self-limited. at least 2 other episodes of late, similar description. -repeat ECG today no ischemic changes. trop x 4 negative. -she suspects cp are mental-stress related (very hi level of late) and this is a likely explanation, given only happens at rest and never with exertion. -no features of the cp suspicious for angina. -if cardiac enzymes negative, would rec observing for any change in sx's--if no suspicious features would defer ischemia w/u. -resume home CAD med regimen once taking PO, per surgeon rec.s (ok to hold anti- PLT meds if surgery is a possibility here) -defer IV bb, unless recurrent CP suspicious for ischemic etiology SBO, h/o gastric bypass: -per Dr. Johnson, conservative mgmt at present HTN: -bp stable -cont current meds elevated LFTs: -per hospitalist -monitor trend (statin on hold due to pt NPO status)
--- NOTE | 2018-01-05 16:57 | PN ---
Progress Note (short form) - Note Progress Note: Afebrile; VSS Pt feeling slightly better Less abdominal pain +BM X2- loose P/E- Abd- non-distended; soft, non-tender on palp ABD X-ray- dilated SB loops in mid-abdomen Contrast noted in colon P- CT of abd 01/06/2018 NPO except ice chips, sips of tea Check labs in AM
[2018-01-05] MEDS: DEXTROSE 5%-0.45% SALINE 1,000 ML IV SCH (21:47)
[2018-01-06] MEDS: morphine SULFATE 4 MG/ML VIAL IVPUSH PRN ×2 (04:33→16:40)
[2018-01-06] MEDS: INSULIN SLIDING SCALE (NOVOLOG) 1 VIAL SQ SCH ×4 (06:33→21:37)
[2018-01-06] MEDS: HEPARIN NA (PORCINE) 5,000 UNITS/ML 1ML VIAL SQ SCH ×2 (10:26→21:34)
[2018-01-06] MEDS: POTASSIUM CHLORIDE TABS 20 MEQ TABLET.ER (FP) PO SCH (10:26)
[2018-01-06 14:33] LABS: BASO % 0.6 % (0-2.0); EOS % 3.3 % (0-4.5); HEMATOCRIT 34.1 % (32.4-45.2); HEMOGLOBIN 11.2 GM/dl (10.7-15.3); LYMPH % 24.9 % (8-40); MCH 29.2 pg (25.7-33.7); MCHC 32.8 g/dl (32.0-36.0); MEAN CELL VOLUME 88.9 fl (80-96); MEAN PLT VOLUME 8.2 fl (7.5-11.1); MONO % 7.8 % (3.8-10.2); NEUT % 63.4 % (42.8-82.8); PLATELET COUNT 243 K/MM3 (134-434); RBC 3.83 M/mm3 (3.60-5.2); RDW 13.6 % (11.6-15.6); WHITE BLOOD COUNT 4.2 K/mm3 (4.0-10.8)
[2018-01-06 14:53] LABS: ALBUMIN 3.3 g/dl (3.5-5.0); ALK PHOS 95 U/L (32-92); ANION GAP 5 MMOL/L (8-16); BILIRUBIN,TOTAL 0.6 mg/dl (0.2-1.0); BLOOD UREA NITROGEN 5 mg/dl (7-18); CALCIUM 8.7 mg/dl (8.4-10.2); CHLORIDE 104 mmol/L (98-107); CO2 28 mmol/L (22-28); CREATININE 0.7 mg/dl (0.6-1.3); GLUCOSE,RANDOM 126 mg/dl (74-106); MAGNESIUM 1.9 mg/dL (1.8-2.4); PHOSPHOROUS 3.6 mg/dl (2.5-4.6); POTASSIUM 4.3 mmol/L (3.5-5.1); SGOT/AST 28 U/L (10-42); SGPT/ALT 41 U/L (10-40); SODIUM 137 mmol/L (136-145); TOT PROT 6.2 g/dl (6.4-8.3)
--- NOTE | 2018-01-06 15:01 | PN ---
Physical Exam: SUBJECTIVE: Patient seen and examined at bedside. No further episodes of chest pain. Feeling tired. OBJECTIVE: Vital Signs Period Temp Pulse Resp BP Sys/Sams Pulse Ox Last 24 Hr 97.3 F-98.1 F 55-58 16-18 100-146/64-73 95-100 GENERAL: The patient is awake, alert, and fully oriented, in no acute distress. LUNGS: Breath sounds equal, clear to auscultation bilaterally, no wheezes, no crackles, no accessory muscle use. HEART: Regular rate and rhythm, S1, S2 without murmur, rub or gallop. ABDOMEN: Soft, nontender, nondistended; bowel sounds x 4 quadrants EXTREMITIES: 2+ pulses, warm, well-perfused, no edema. NEUROLOGICAL: Cranial nerves II through XII grossly intact. Normal speech, gait not observed. Laboratory Results - last 24 hr 01/05/18 01/05/18 01/06/18 18:06 21:29 06:29 WBC RBC Hgb Hct MCV MCH MCHC RDW Plt Count MPV Absolute Neuts (auto) Neutrophils % Lymphocytes % Monocytes % Eosinophils % Basophils % POC Glucometer 113 131 138 01/06/18 13:50 WBC 4.2 RBC 3.83 Hgb 11.2 Hct 34.1 MCV 88.9 MCH 29.2 MCHC 32.8 RDW 13.6 Plt Count 243 MPV 8.2 Absolute Neuts (auto) 2.7 Neutrophils % 63.4 Lymphocytes % 24.9 Monocytes % 7.8 Eosinophils % 3.3 Basophils % 0.6 POC Glucometer Active Medications Generic Name Dose Route Start Last Admin Trade Name Freq PRN Reason Stop Dose Admin Heparin Sodium (Porcine) 5,000 unit 01/04/18 10:00 01/06/18 10:26 Heparin - SQ 5,000 unit BID KATHY Administration Dextrose/Sodium Chloride 1,000 mls @ 75 mls/hr 01/03/18 19:45 01/05/18 21:47 D5-1/2ns - IV 75 mls/hr ASDIR KATHY Administration Insulin Aspart 1 vial 01/04/18 16:30 01/06/18 12:51 Novolog Vial Sliding Scale - SQ Not Given ACHS KATHY Protocol Morphine Sulfate 4 mg 01/03/18 21:15 01/06/18 04:33 Morphine Sulfate IVPUSH 4 mg Q6H PRN Administration PAIN LEVEL 7 - 10 Ondansetron HCl 4 mg 01/03/18 19:39 Zofran Injection IVPUSH Q6H PRN NAUSEA AND/OR VOMITING Potassium Chloride 40 meq 01/04/18 17:00 01/06/18 10:26 K-Dur - PO 40 meq DAILY KATHY Administration ASSESSMENT/PLAN: 62 year-old female with a PMH significant for HTN, HLD, CAD s/p CABG x 4 (2004) s/p stents x 8 (2011), NIDDM x 10 years, pancreatitis, h/o SBO, s/p cholecystectomy, s/p gastric bypass (2005, Alex), s/p c-sections x 4. Admitted for a SBO. Small bowel obstruction Multiple abdominal surgeries Gastric bypass 2005 --01/03 CTAP: partial proximal SBO; repeat CTAP today no change --having small BMs, passing flatus --afebrile, no leukocytosis, continue observe off antibiotics --Dr. Johnson following Chest pain CAD s/p CABG x 4 s/p stents x 8 --troponin neg x 3; ECG no ischemic changes; CXR unremarkable --01/05 echo: LV normal; RV normal; mild MR; mild TR; mild PI --per Dr. Hamilton, will need ischemia evaluation with pharm MPI prior to elective surgery --cardiology following Hypertension --BP stable, on no meds Hyperlipidemia --not on statin NIDDM --Novolog sliding scale coverage Hypomagnesemia --replete FEN Fluids: D51/2NS @ 75mL/hr Electrolytes: replete as indicated; K>4, Mg>2 Nutrition: NPO DVT prophylaxis: subq heparin Dispo: continues to require inpatient care. Full code. Visit type - Emergency Visit Emergency Visit: Yes ED Registration Date: 01/03/18 Care time: The patient presented to the Emergency Department on the above date and was hospitalized for further evaluation of their emergent condition. - New Patient This patient is new to me today: No - Critical Care Critical Care patient: No
[2018-01-06] MEDS ORDERED: MAGNESIUM SULF 50% (8.12 MEQ/2 ML-1 GM VIAL) IVPB ONE (15:34)
--- NOTE | 2018-01-06 16:56 | PN ---
Progress Note (short form) - Note Progress Note: Bariatric Surgery Note: Afebrile; VSS Pt unchanged Had mid-abdominal pain last evening NO N/V Tolerating sips of tea, water +BM X1-soft P/E-Abd- soft, non-tender on palpation CT Scan-Partial SB obstruction remains No major change from 01/03 WBC-4.2 H/H-11.2/34.1 P- Cont sips of tea, water Encourage ambulation Cont DVT prophylaxis
[2018-01-06] MEDS: DEXTROSE 5%-0.45% SALINE 1,000 ML IV SCH (21:35)
[2018-01-07] MEDS: INSULIN SLIDING SCALE (NOVOLOG) 1 VIAL SQ SCH ×4 (07:10→22:19)
[2018-01-07 09:27] LABS: BASO % 0.9 % (0-2.0); EOS % 4.6 % (0-4.5); HEMATOCRIT 34.8 % (32.4-45.2); HEMOGLOBIN 11.4 GM/dl (10.7-15.3); LYMPH % 31.3 % (8-40); MCH 29.5 pg (25.7-33.7); MCHC 32.8 g/dl (32.0-36.0); MEAN CELL VOLUME 90.1 fl (80-96); MEAN PLT VOLUME 8.5 fl (7.5-11.1); MONO % 11.1 % (3.8-10.2); NEUT % 52.1 % (42.8-82.8); PLATELET COUNT 213 K/MM3 (134-434); RBC 3.86 M/mm3 (3.60-5.2); RDW 13.5 % (11.6-15.6); WHITE BLOOD COUNT 3.4 K/mm3 (4.0-10.8)
--- NOTE | 2018-01-07 09:36 | PN ---
Physical Exam: SUBJECTIVE: Patient seen at bedside, denies pain, nausea, +Flatus, OBJECTIVE: Vital Signs Period Temp Pulse Resp BP Sys/Sams Pulse Ox Last 24 Hr 97.8 F-98.1 F 55-58 16-19 97-133/52-64 91-95 GENERAL: The patient is awake, alert, and fully oriented, in no acute distress. HEAD: Normal with no signs of trauma. EYES: PERRL, extraocular movements intact, sclera anicteric, conjunctiva clear. No ptosis. ENT: Ears normal, nares patent, oropharynx clear without exudates, moist mucous membranes. NECK: Trachea midline, full range of motion, supple. LUNGS: Breath sounds equal, clear to auscultation bilaterally, no wheezes, no crackles, no accessory muscle use. HEART: Regular rate and rhythm, S1, S2 without murmur, rub or gallop. ABDOMEN: Soft, nontender, nondistended, normoactive bowel sounds, no guarding, no rebound, no hepatosplenomegaly, no masses. EXTREMITIES: 2+ pulses, warm, well-perfused, no edema. NEUROLOGICAL: Cranial nerves II through XII grossly intact. Normal speech, gait not observed. PSYCH: Normal mood, normal affect. SKIN: Warm, dry, normal turgor, no rashes or lesions noted Laboratory Results - last 24 hr 01/06/18 01/06/18 01/06/18 13:50 13:50 16:43 WBC 4.2 RBC 3.83 Hgb 11.2 Hct 34.1 MCV 88.9 MCH 29.2 MCHC 32.8 RDW 13.6 Plt Count 243 MPV 8.2 Absolute Neuts (auto) 2.7 Neutrophils % 63.4 Lymphocytes % 24.9 Monocytes % 7.8 Eosinophils % 3.3 Basophils % 0.6 Sodium 137 Potassium 4.3 Chloride 104 Carbon Dioxide 28 Anion Gap 5 L BUN 5 L Creatinine 0.7 Creat Clearance w eGFR > 60 POC Glucometer 110 Random Glucose 126 H Calcium 8.7 Phosphorus 3.6 Magnesium 1.9 Total Bilirubin 0.6 AST 28 D ALT 41 H Alkaline Phosphatase 95 H D Total Protein 6.2 L Albumin 3.3 L 01/06/18 01/07/18 21:36 07:08 WBC RBC Hgb Hct MCV MCH MCHC RDW Plt Count MPV Absolute Neuts (auto) Neutrophils % Lymphocytes % Monocytes % Eosinophils % Basophils % Sodium Potassium Chloride Carbon Dioxide Anion Gap BUN Creatinine Creat Clearance w eGFR POC Glucometer 117 117 Random Glucose Calcium Phosphorus Magnesium Total Bilirubin AST ALT Alkaline Phosphatase Total Protein Albumin Active Medications Generic Name Dose Route Start Last Admin Trade Name Garfieldq PRN Reason Stop Dose Admin Heparin Sodium (Porcine) 5,000 unit 01/04/18 10:00 01/06/18 21:34 Heparin - SQ 5,000 unit BID KATHY Administration Dextrose/Sodium Chloride 1,000 mls @ 75 mls/hr 01/03/18 19:45 01/06/18 21:35 D5-1/2ns - IV 75 mls/hr ASDIR KATHY Administration Insulin Aspart 1 vial 01/04/18 16:30 01/07/18 07:10 Novolog Vial Sliding Scale - SQ Not Given ACHS KATHY Protocol Morphine Sulfate 4 mg 01/03/18 21:15 01/06/18 16:40 Morphine Sulfate IVPUSH 4 mg Q6H PRN Administration PAIN LEVEL 7 - 10 Ondansetron HCl 4 mg 01/03/18 19:39 01/06/18 16:39 Zofran Injection IVPUSH 4 mg Q6H PRN Administration NAUSEA AND/OR VOMITING Potassium Chloride 40 meq 01/04/18 17:00 01/06/18 10:26 K-Dur - PO 40 meq DAILY KATHY Administration ASSESSMENT/PLAN: 62 year-old female with a PMH significant for HTN, HLD, CAD s/p CABG x 4 (2004) s/p stents x 8 (2011), NIDDM x 10 years, pancreatitis, h/o SBO, s/p cholecystectomy, s/p gastric bypass (2005, Alex), s/p c-sections x 4. Admitted for a SBO. Small bowel obstruction Multiple abdominal surgeries Gastric bypass 2005 --01/03 CTAP: partial proximal SBO; repeat CTAP today no change --having small BMs, passing flatus --afebrile, no leukocytosis, continue observe off antibiotics --Dr. Johnson following -- repeat Abd xray ordered Chest pain CAD s/p CABG x 4 s/p stents x 8 --troponin neg x 3; ECG no ischemic changes; CXR unremarkable --01/05 echo: LV normal; RV normal; mild MR; mild TR; mild PI --per Dr. Gitig, will need ischemia evaluation with pharm MPI prior to elective surgery --cardiology following Hypertension --BP stable, on no meds Hyperlipidemia --not on statin NIDDM --Novolog sliding scale coverage Hypomagnesemia --replete FEN Fluids: D51/2NS @ 75mL/hr Electrolytes: replete as indicated; K>4, Mg>2 Nutrition: NPO DVT prophylaxis: subq heparin Dispo: continues to require inpatient care. Full code. Visit type - Emergency Visit Emergency Visit: Yes ED Registration Date: 01/03/18 Care time: The patient presented to the Emergency Department on the above date and was hospitalized for further evaluation of their emergent condition. - New Patient This patient is new to me today: Yes Date on this admission: 01/07/18 - Critical Care Critical Care patient: No
[2018-01-07 09:46] LABS: ALBUMIN 3.1 g/dl (3.5-5.0); ALK PHOS 90 U/L (32-92); ANION GAP 9 MMOL/L (8-16); BILIRUBIN,TOTAL 0.3 mg/dl (0.2-1.0); BLOOD UREA NITROGEN 5 mg/dl (7-18); CALCIUM 8.6 mg/dl (8.4-10.2); CHLORIDE 106 mmol/L (98-107); CO2 23 mmol/L (22-28); CREATININE 0.7 mg/dl (0.6-1.3); GLUCOSE,RANDOM 120 mg/dl (74-106); POTASSIUM 4.2 mmol/L (3.5-5.1); SGOT/AST 24 U/L (10-42); SGPT/ALT 33 U/L (10-40); SODIUM 138 mmol/L (136-145); TOT PROT 5.7 g/dl (6.4-8.3)
[2018-01-07] MEDS: POTASSIUM CHLORIDE TABS 20 MEQ TABLET.ER (FP) PO SCH (10:30)
[2018-01-07] MEDS: HEPARIN NA (PORCINE) 5,000 UNITS/ML 1ML VIAL SQ SCH ×2 (11:00→22:12)
--- NOTE | 2018-01-07 12:30 | PN ---
Progress Note, Physician History of Present Illness: Feeling better Had BM and passing flatus No chest pains - Current Medication List Current Medications: Active Medications Heparin Sodium (Porcine) (Heparin -) 5,000 unit SQ BID [facility] Last Admin: 01/07/18 11:00 Dose: 5,000 unit Dextrose/Sodium Chloride (D5-1/2ns -) 1,000 mls @ 75 mls/hr IV ASDIR [facility] Last Admin: 01/06/18 21:35 Dose: 75 mls/hr Insulin Aspart (Novolog Vial Sliding Scale -) 1 vial SQ ACHS [facility]; Protocol Last Admin: 01/07/18 11:55 Dose: Not Given Morphine Sulfate (Morphine Sulfate) 4 mg IVPUSH Q6H PRN PRN Reason: PAIN LEVEL 7 - 10 Last Admin: 01/06/18 16:40 Dose: 4 mg Ondansetron HCl (Zofran Injection) 4 mg IVPUSH Q6H PRN PRN Reason: NAUSEA AND/OR VOMITING Last Admin: 01/06/18 16:39 Dose: 4 mg Potassium Chloride (K-Dur -) 40 meq PO DAILY [facility] Last Admin: 01/07/18 10:30 Dose: 40 meq - Objective Vital Signs: Vital Signs Temperature 97.8 F 01/07/18 06:00 Pulse Rate 58 L 01/07/18 06:00 Respiratory Rate 19 01/07/18 06:00 Blood Pressure 107/52 L 01/07/18 06:00 O2 Sat by Pulse Oximetry (%) 94 L 01/07/18 09:00 Constitutional: Yes: No Distress, Calm Eyes: Yes: WNL HENT: Yes: WNL Neck: Yes: WNL Cardiovascular: Yes: Regular Rate and Rhythm Respiratory: Yes: CTA Bilaterally Musculoskeletal: Yes: WNL Extremities: Yes: WNL Edema: No Labs: CBC, BMP 01/07/18 06:30 01/07/18 06:30 INR, PTT INR 1.02 (0.82-1.09) 01/03/18 15:06 Assessment/Plan SBO, h/o gastric bypass: -per Dr. Johnson, conservative mgmt at present with improvement, CT done today -If conservative management is the plan, would not proceed with inpatient myocardial stress testing. HTN: -bp stable -cont current meds elevated LFTs: -per hospitalist -monitor trend (statin on hold due to pt NPO status)
--- NOTE | 2018-01-07 17:01 | PN ---
Progress Note (short form) - Note Progress Note: Bariatric Surgery: Afebrile;VSS Pt slightly improved Taking tea, water NO N/V + BM, flatus P/E- Abd- non-distended, soft, non-tender on palpation P- Repeat Abd x-ray tomorrow Cont DVT prophylaxis Cont clear liquids
[2018-01-07] MEDS: DEXTROSE 5%-0.45% SALINE 1,000 ML IV SCH (22:12)
[2018-01-08] MEDS: INSULIN SLIDING SCALE (NOVOLOG) 1 VIAL SQ SCH ×2 (06:43→21:05)
[2018-01-08 08:50] LABS: BASO % 0.6 % (0-2.0); EOS % 4.6 % (0-4.5); HEMATOCRIT 34.8 % (32.4-45.2); HEMOGLOBIN 11.9 GM/dl (10.7-15.3); LYMPH % 29.3 % (8-40); MCH 30.6 pg (25.7-33.7); MCHC 34.3 g/dl (32.0-36.0); MEAN CELL VOLUME 89.1 fl (80-96); MEAN PLT VOLUME 8.1 fl (7.5-11.1); NEUT % 56.5 % (42.8-82.8); PLATELET COUNT 244 K/MM3 (134-434); RBC 3.91 M/mm3 (3.60-5.2); RDW 13.5 % (11.6-15.6); WHITE BLOOD COUNT 3.8 K/mm3 (4.0-10.8)
[2018-01-08] MEDS: HEPARIN NA (PORCINE) 5,000 UNITS/ML 1ML VIAL SQ SCH ×2 (09:19→21:02)
[2018-01-08] MEDS: POTASSIUM CHLORIDE TABS 20 MEQ TABLET.ER (FP) PO SCH (09:19)
[2018-01-08 09:32] LABS: ALBUMIN 3.3 g/dl (3.5-5.0); ALK PHOS 90 U/L (32-92); ANION GAP 9 MMOL/L (8-16); BILIRUBIN,TOTAL 0.4 mg/dl (0.2-1.0); BLOOD UREA NITROGEN 4 mg/dl (7-18); CALCIUM 8.9 mg/dl (8.4-10.2); CHLORIDE 105 mmol/L (98-107); CO2 28 mmol/L (22-28); CREATININE 0.7 mg/dl (0.6-1.3); GLUCOSE,RANDOM 152 mg/dl (74-106); MAGNESIUM 1.8 mg/dL (1.8-2.4); POTASSIUM 4.5 mmol/L (3.5-5.1); SGOT/AST 33 U/L (10-42); SGPT/ALT 36 U/L (10-40); SODIUM 142 mmol/L (136-145); TOT PROT 6.1 g/dl (6.4-8.3)
--- NOTE | 2018-01-08 09:56 | PN ---
Physical Exam: SUBJECTIVE: Patient seen and examined. Having small BMs, passing flatus. OBJECTIVE: Vital Signs Period Temp Pulse Resp BP Sys/Sams Pulse Ox Last 24 Hr 97.7 F-98.1 F 54-62 16-20 103-130/63-80 97-98 GENERAL: The patient is awake, alert, and fully oriented, in no acute distress. LUNGS: Breath sounds equal, clear to auscultation bilaterally, no wheezes, no crackles, no accessory muscle use. HEART: Regular rate and rhythm, S1, S2 without murmur, rub or gallop. ABDOMEN: Soft, nontender, nondistended; bowel sounds x 4 quadrants EXTREMITIES: 2+ pulses, warm, well-perfused, no edema. NEUROLOGICAL: Cranial nerves II through XII grossly intact. Normal speech. Gait steady. Laboratory Results - last 24 hr 01/07/18 01/08/18 01/08/18 22:18 06:40 08:24 WBC 3.8 L RBC 3.91 Hgb 11.9 Hct 34.8 MCV 89.1 MCH 30.6 MCHC 34.3 RDW 13.5 Plt Count 244 MPV 8.1 Absolute Neuts (auto) 2.2 Neutrophils % 56.5 Lymphocytes % 29.3 Monocytes % 9.0 Eosinophils % 4.6 H Basophils % 0.6 Sodium Potassium Chloride Carbon Dioxide Anion Gap BUN Creatinine Creat Clearance w eGFR POC Glucometer 123 137 Random Glucose Calcium Magnesium Total Bilirubin AST ALT Alkaline Phosphatase Total Protein Albumin 01/08/18 08:24 WBC RBC Hgb Hct MCV MCH MCHC RDW Plt Count MPV Absolute Neuts (auto) Neutrophils % Lymphocytes % Monocytes % Eosinophils % Basophils % Sodium 142 Potassium 4.5 Chloride 105 Carbon Dioxide 28 D Anion Gap 9 BUN 4 L Creatinine 0.7 Creat Clearance w eGFR > 60 POC Glucometer Random Glucose 152 H D Calcium 8.9 Magnesium 1.8 Total Bilirubin 0.4 AST 33 D ALT 36 Alkaline Phosphatase 90 Total Protein 6.1 L Albumin 3.3 L Active Medications Generic Name Dose Route Start Last Admin Trade Name Freq PRN Reason Stop Dose Admin Heparin Sodium (Porcine) 5,000 unit 01/04/18 10:00 01/08/18 09:19 Heparin - SQ 5,000 unit BID KATHY Administration Dextrose/Sodium Chloride 1,000 mls @ 75 mls/hr 01/03/18 19:45 01/07/18 22:12 D5-1/2ns - IV 75 mls/hr ASDIR KATHY Administration Insulin Aspart 1 vial 01/04/18 16:30 01/08/18 06:43 Novolog Vial Sliding Scale - SQ Not Given ACHS KATHY Protocol Ondansetron HCl 4 mg 01/03/18 19:39 01/06/18 16:39 Zofran Injection IVPUSH 4 mg Q6H PRN Administration NAUSEA AND/OR VOMITING ASSESSMENT/PLAN: 62 year-old female with a PMH significant for HTN, HLD, CAD s/p CABG x 4 (2004) s/p stents x 8 (2011), NIDDM x 10 years, pancreatitis, h/o SBO, s/p cholecystectomy, s/p gastric bypass (2005, Alex), s/p c-sections x 4. Admitted for a SBO. Small bowel obstruction Multiple abdominal surgeries Gastric bypass 2005 --01/03 and 01/06 CTAP: partial proximal SBO --having small BMs, passing flatus --afebrile, no leukocytosis, continue observe off antibiotics --daily abdominal films to assess progress --Dr. Johnson following Chest pain CAD s/p CABG x 4 s/p stents x 8 --troponin neg x 3; ECG no ischemic changes; CXR unremarkable --01/05 echo: LV normal; RV normal; mild MR; mild TR; mild PI --per Dr. Hamilton, will need ischemia evaluation with pharm MPI prior to elective surgery --cardiology following Hypertension --BP stable, on no meds Hyperlipidemia --not on statin NIDDM --Novolog sliding scale coverage Hypomagnesemia --replete FEN Fluids: D51/2NS @ 75mL/hr Electrolytes: replete as indicated; K>4, Mg>2 Nutrition: NPO DVT prophylaxis: subq heparin Dispo: continues to require inpatient care. Full code. Visit type - Emergency Visit Emergency Visit: Yes ED Registration Date: 01/03/18 Care time: The patient presented to the Emergency Department on the above date and was hospitalized for further evaluation of their emergent condition. - New Patient This patient is new to me today: No - Critical Care Critical Care patient: No
[2018-01-08] MEDS ORDERED: MAGNESIUM SULF 50% (8.12 MEQ/2 ML-1 GM VIAL) IVPB ONE (12:23)
[2018-01-08] MEDS ORDERED: MAGNESIUM SULFATE IN WATER 2 GM/50 ML IVPB IVPB ONE (12:30)
--- NOTE | 2018-01-08 15:12 | PN ---
Progress Note (short form) - Note Progress Note: Pt mostly unchanged No N/V +BM Abd pain decreased P/A- Abd- non-distended, soft non-tender on palpation Abd X-ray- no change, dilated SB loops centrally Contrast passed thru colon P- Will allow limited soft diet Cont DVT prophylaxis
[2018-01-08] MEDS: DEXTROSE 5%-0.45% SALINE 1,000 ML IV SCH (21:04)
[2018-01-09] MEDS: INSULIN SLIDING SCALE (NOVOLOG) 1 VIAL SQ SCH ×4 (07:03→21:20)
[2018-01-09 08:18] LABS: BASO % 0.6 % (0-2.0); EOS % 5.7 % (0-4.5); HEMATOCRIT 36.1 % (32.4-45.2); HEMOGLOBIN 12.5 GM/dl (10.7-15.3); LYMPH % 30.4 % (8-40); MCH 30.9 pg (25.7-33.7); MCHC 34.7 g/dl (32.0-36.0); MEAN CELL VOLUME 89.2 fl (80-96); MEAN PLT VOLUME 7.9 fl (7.5-11.1); MONO % 9.4 % (3.8-10.2); NEUT % 53.9 % (42.8-82.8); PLATELET COUNT 266 K/MM3 (134-434); RBC 4.04 M/mm3 (3.60-5.2); RDW 13.6 % (11.6-15.6); WHITE BLOOD COUNT 3.7 K/mm3 (4.0-10.8)
[2018-01-09 08:24] LABS: ALBUMIN 3.4 g/dl (3.5-5.0); ALK PHOS 88 U/L (32-92); ANION GAP 6 MMOL/L (8-16); BILIRUBIN,TOTAL 0.4 mg/dl (0.2-1.0); CALCIUM 9.1 mg/dl (8.4-10.2); CHLORIDE 105 mmol/L (98-107); CO2 27 mmol/L (22-28); CREATININE 0.7 mg/dl (0.6-1.3); GLUCOSE,RANDOM 156 mg/dl (74-106); MAGNESIUM 1.7 mg/dL (1.8-2.4); PHOSPHOROUS 4.1 mg/dl (2.5-4.6); POTASSIUM 4.2 mmol/L (3.5-5.1); SGOT/AST 32 U/L (10-42); SGPT/ALT 35 U/L (10-40); SODIUM 138 mmol/L (136-145); TOT PROT 6.3 g/dl (6.4-8.3)
[2018-01-09 08:28] LABS: BLOOD UREA NITROGEN < 6 mg/dl (7-18)
[2018-01-09] MEDS ORDERED: MAGNESIUM SULF 50% (8.12 MEQ/2 ML-1 GM VIAL) IVPB ONE (09:04)
--- NOTE | 2018-01-09 09:05 | PN ---
Physical Exam: SUBJECTIVE: Patient seen and examined. Tolerating very small, easy to digest meals. OBJECTIVE: Vital Signs Period Temp Pulse Resp BP Sys/Sams Pulse Ox Last 24 Hr 97.5 F-97.9 F 62-64 18-18 118-144/65-73 96-98 GENERAL: The patient is awake, alert, and fully oriented, in no acute distress. LUNGS: Breath sounds equal, clear to auscultation bilaterally, no wheezes, no crackles, no accessory muscle use. HEART: Regular rate and rhythm, S1, S2 without murmur, rub or gallop. ABDOMEN: Soft, nontender, nondistended; bowel sounds x 4 quadrants EXTREMITIES: 2+ pulses, warm, well-perfused, no edema. NEUROLOGICAL: Cranial nerves II through XII grossly intact. Normal speech. Gait steady. Laboratory Results - last 24 hr 01/08/18 01/08/18 01/08/18 08:24 08:24 11:02 WBC 3.8 L RBC 3.91 Hgb 11.9 Hct 34.8 MCV 89.1 MCH 30.6 MCHC 34.3 RDW 13.5 Plt Count 244 MPV 8.1 Absolute Neuts (auto) 2.2 Neutrophils % 56.5 Lymphocytes % 29.3 Monocytes % 9.0 Eosinophils % 4.6 H Basophils % 0.6 Sodium 142 Potassium 4.5 Chloride 105 Carbon Dioxide 28 D Anion Gap 9 BUN 4 L Creatinine 0.7 Creat Clearance w eGFR > 60 POC Glucometer 125 Random Glucose 152 H D Calcium 8.9 Phosphorus Magnesium 1.8 Total Bilirubin 0.4 AST 33 D ALT 36 Alkaline Phosphatase 90 Total Protein 6.1 L Albumin 3.3 L 01/08/18 01/09/18 01/09/18 21:01 06:53 07:36 WBC 3.7 L RBC 4.04 Hgb 12.5 Hct 36.1 MCV 89.2 MCH 30.9 MCHC 34.7 RDW 13.6 Plt Count 266 MPV 7.9 Absolute Neuts (auto) 2.1 Neutrophils % 53.9 Lymphocytes % 30.4 Monocytes % 9.4 Eosinophils % 5.7 H Basophils % 0.6 Sodium Potassium Chloride Carbon Dioxide Anion Gap BUN Creatinine Creat Clearance w eGFR POC Glucometer 114 133 Random Glucose Calcium Phosphorus Magnesium Total Bilirubin AST ALT Alkaline Phosphatase Total Protein Albumin 01/09/18 07:36 WBC RBC Hgb Hct MCV MCH MCHC RDW Plt Count MPV Absolute Neuts (auto) Neutrophils % Lymphocytes % Monocytes % Eosinophils % Basophils % Sodium 138 Potassium 4.2 Chloride 105 Carbon Dioxide 27 Anion Gap 6 L BUN < 6 L Creatinine 0.7 Creat Clearance w eGFR > 60 POC Glucometer Random Glucose 156 H Calcium 9.1 Phosphorus 4.1 Magnesium 1.7 L Total Bilirubin 0.4 AST 32 ALT 35 Alkaline Phosphatase 88 Total Protein 6.3 L Albumin 3.4 L Active Medications Generic Name Dose Route Start Last Admin Trade Name Roger PRN Reason Stop Dose Admin Heparin Sodium (Porcine) 5,000 unit 01/04/18 10:00 01/08/18 21:02 Heparin - SQ 5,000 unit BID KATHY Administration Dextrose/Sodium Chloride 1,000 mls @ 75 mls/hr 01/03/18 19:45 01/08/18 21:04 D5-1/2ns - IV 75 mls/hr ASDIR KATHY Administration Insulin Aspart 1 vial 01/04/18 16:30 01/09/18 07:03 Novolog Vial Sliding Scale - SQ Not Given ACHS [facility] Protocol Magnesium Sulfate 2 gm 01/09/18 09:04 Magnesium Sulfate IVPB 01/09/18 09:05 ONCE ONE ASSESSMENT/PLAN 62 year-old female with a PMH significant for HTN, HLD, CAD s/p CABG x 4 (2004) s/p stents x 8 (2011), NIDDM x 10 years, pancreatitis, h/o SBO, s/p cholecystectomy, s/p gastric bypass (2005, Alex), s/p c-sections x 4. Admitted for a SBO. Small bowel obstruction Multiple abdominal surgeries Gastric bypass 2005 --01/03 and 01/06 CTAP: partial proximal SBO --having small BMs, passing flatus, tolerating small meals --afebrile, no leukocytosis, continue observe off antibiotics --daily abdominal films to assess progress --Dr. Johnson following Chest pain CAD s/p CABG x 4 s/p stents x 8 --troponin neg x 3; ECG no ischemic changes; CXR unremarkable --01/05 echo: LV normal; RV normal; mild MR; mild TR; mild PI --per Dr. Hamilton, will need ischemia evaluation with pharm MPI prior to elective surgery --cardiology following Hypertension --BP stable, on no meds Hyperlipidemia --not on statin NIDDM --Novolog sliding scale coverage Hypomagnesemia --replete FEN Fluids: D51/2NS @ 75mL/hr Electrolytes: replete as indicated; K>4, Mg>2 Nutrition: NPO DVT prophylaxis: subq heparin Dispo: continues to require inpatient care. Full code. Visit type - Emergency Visit Emergency Visit: Yes ED Registration Date: 01/03/18 Care time: The patient presented to the Emergency Department on the above date and was hospitalized for further evaluation of their emergent condition. - New Patient This patient is new to me today: No - Critical Care Critical Care patient: No
[2018-01-09] MEDS ORDERED: MAGNESIUM SULFATE IN WATER 2 GM/50 ML IVPB IVPB ONE (09:30)
[2018-01-09] MEDS: HEPARIN NA (PORCINE) 5,000 UNITS/ML 1ML VIAL SQ SCH ×2 (09:54→21:19)
[2018-01-09] MEDS: DEXTROSE 5%-0.45% SALINE 1,000 ML IV SCH ×2 (09:55→21:20)
--- NOTE | 2018-01-09 15:44 | PN ---
Progress Note (short form) - Note Progress Note: Bariatric Surgery Pt appears to be improving Tolerating PO soft food No N/V No abdominal pain P/E- Abd- non-distended; soft, non-tender on palpation P- Cont PO soft food Cont DVT prophylaxis Abd X-ray tomorrow
[2018-01-10] MEDS: INSULIN SLIDING SCALE (NOVOLOG) 1 VIAL SQ SCH ×2 (07:05→11:30)
[2018-01-10 08:35] VITALS: BP 141/74; PULSE 87; TEMP 97.7
[2018-01-10] MEDS: HEPARIN NA (PORCINE) 5,000 UNITS/ML 1ML VIAL SQ SCH (09:34)
--- NOTE | 2018-01-10 13:45 | PN ---
Progress Note (short form) - Note Progress Note: Bariatric Surgery Pt doing well Tolerating PO soft diet No Abdominal pain No N/V P/E- Abd- non-distended; soft, non-tender on palpation Abd X-Ray- decreased SB distention P- D/C home PO soft diet for 1-2 days, then advance slowly to solid food as tolerated F/U in 2 weeks in Bariatric office
--- NOTE | 2018-01-10 14:03 | DS ---
Physical Exam: SUBJECTIVE: Patient seen and examined OBJECTIVE: Vital Signs Period Temp Pulse Resp BP Sys/Sams Pulse Ox Last 24 Hr 97.7 F-98.2 F 62-87 16-18 122-141/63-74 98 PHYSICAL EXAM GENERAL: The patient is awake, alert, and fully oriented, in no acute distress. HEAD: Normal with no signs of trauma. EYES: PERRL, extraocular movements intact, sclera anicteric, conjunctiva clear. ENT: Ears normal, nares patent, oropharynx clear without exudates, moist mucous membranes. NECK: Trachea midline, full range of motion, supple. LUNGS: Breath sounds equal, clear to auscultation bilaterally, no wheezes, no crackles, no accessory muscle use. HEART: Regular rate and rhythm, S1, S2 without murmur, rub or gallop. ABDOMEN: Soft, nontender, nondistended, normoactive bowel sounds, no guarding, no rebound, no hepatosplenomegaly, no masses. EXTREMITIES: 2+ pulses, warm, well-perfused, no edema. NEUROLOGICAL: Cranial nerves II through XII grossly intact. Normal speech, gait not observed. PSYCH: Normal mood, normal affect. SKIN: Warm, dry, normal turgor, no rashes or lesions noted. LABS Laboratory Results - last 24 hr 01/09/18 01/09/18 01/10/18 17:07 21:18 06:30 POC Glucometer 123 157 119 HOSPITAL COURSE: Date of Admission:01/03/18 Date of Discharge: 01/10/18 Minutes to complete discharge: 35 Discharge Summary Reason For Visit: SMALL BOWEL OBSTRUCTION Current Active Problems SBO (small bowel obstruction) (Acute) Condition: Improved - Instructions Diet, Activity, Other Instructions: Continue following a soft diet for 1-2 days, then advance slowly to solid food as you can tolerate. You should follow up with Dr. Johnson in the Bariatric Office in 2 weeks. Return to the emergency department for any new or worsening symptoms. Referrals: Vignesh Johnson MD [Staff Physician] - 2 Weeks Rosa Maria Hinojosa [Primary Care Provider] - Disposition: HOME - Home Medications Comprehensive Discharge Medication List: Ambulatory Orders Aspirin [ASA -] 81 mg PO DAILY 01/03/18 This patient is new to me today: No Emergency Visit: Yes ED Registration Date: 01/03/18 Care time: The patient presented to the Emergency Department on the above date and was hospitalized for further evaluation of their emergent condition. Critical Care patient: No - Discharge Referral Referred to [facility] No
== END 2018-01-10 15:04 | disposition home or self-care (01) | DRG 247 ==
LOC: SUPCPDRO 13:46 → FER 13:46 → FM/S 18:41
PROVIDERS: ADMIT Internal Medicine; ATTEND Nurse Practitioner Acute Care
DX: K56.600 Partial intestinal obstruction, unspecified as to cause (principal); E83.42 Hypomagnesemia; I25.810 Atherosclerosis of coronary artery bypass graft(s) without angina pectoris; Z98.84 Bariatric surgery status; Z95.1 Presence of aortocoronary bypass graft; E11.9 Type 2 diabetes mellitus without complications; I10 Essential (primary) hypertension; E78.00 Pure hypercholesterolemia, unspecified; E66.9 Obesity, unspecified; Z68.34 Body mass index [BMI] 34.0-34.9, adult; K57.32 Diverticulitis of large intestine without perforation or abscess without bleeding
CPT/HCPCS: 36415; 71045-TC-FY; 74019-TC-FY; 74176-TC; 74177-TC; 80048; 80053; 81003; 82550; 82962; 83605; 83690; 83735; 84100; 84484; 85025; 85610; 86850; 86900; 86901; 87040; 87086; 93005; 93306-TC; 99283-25; J1644; J7030; Q0162

== ENCOUNTER 2022-03-17 19:06 | Emergency (ER) | payer OTHER ==
[2022-03-17 19:17] VITALS: BP 160/99; PULSE 60; RESP 18; TEMP 98.4; BMI 24.0
[2022-03-17] MEDS ORDERED: SODIUM CHLORIDE 1,000 ML IV SCH (19:45)
[2022-03-17 20:04] LABS: HEMATOCRIT 36.1 % (32.4-45.2); HEMOGLOBIN 12.1 G/dL (10.7-15.3); MCH 29.9 pg (25.7-33.7); MCHC 33.4 g/dl (32.0-36.0); MEAN CELL VOLUME 89.5 fl (80-96); MEAN PLT VOLUME 8.3 fl (7.5-11.1); PLATELET COUNT 263.1 10^3/uL (134-434); RBC 4.03 10^6/uL (3.60-5.2); RDW 14.5 % (11.6-15.6)
[2022-03-17 20:15] LABS: ALBUMIN 3.9 g/dl (3.4-5.0); BILIRUBIN,TOTAL 0.4 mg/dl (0.2-1); CALCIUM 8.9 mg/dl (8.5-10); CREATININE 0.9 mg/dl (0.55-1.3); TOT PROT 7.2 g/dl (6.4-8.2)
== END 2022-03-17 22:36 | disposition home or self-care (01) ==
LOC: FER 19:06
PROC: 3E0337Z Introduction of Electrolytic and Water Balance Substance into Peripheral Vein, Percutaneous Approach (ICD-10-PCS; principal; 2022-03-17)
DX: R10.33 Periumbilical pain (principal)
CPT/HCPCS: 36415; 71045-TC-FY; 74177-TC; 80053; 81003; 81015; 82550; 83690; 84484; 85027; 93005; 99285-25; Q9967